=== PATIENT | female | born 1990 | race Caucasian/White ===

== ENCOUNTER 2022-12-14 12:53 | Inpatient (IN) | payer SELFPAY ==
[2022-12-14] VITALS (9 sets, daily range): BP systolic 103–127; BP diastolic 67–80; PULSE 74–99; RESP 16–18; TEMP 36.6–37.1; O2SAT 96–100; BMI 26.8; BMI 26.3
--- NOTE | 2022-12-14 13:19 | PC.NURSE ---
Dr. Ortiz at BS for pt eval
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
--- NOTE | 2022-12-14 13:50 | PC.NURSE ---
Dr. Ortiz on phone with Dr. Quintero for consult
--- NOTE | 2022-12-14 13:55 | PC.NURSE ---
Pt gone to RAD via wheelchair
--- NOTE | 2022-12-14 13:56 | MR_ITS ---
PROCEDURE INFORMATION: Exam: MR Left Lower Extremity Without Contrast, Femur Exam date and time: 12/14/2022 5:09 PM Age: 32 years old Clinical indication: Edema; Location not specified; Additional info: Concern for schuler - zac injury TECHNIQUE: Imaging protocol: Magnetic resonance imaging of the left femur without contrast. COMPARISON: CR XR FEMUR LT 2V 12/14/2022 1:50 PM FINDINGS: Bones/joints: Marrow edema in the posteromedial tibial plateau may indicate bone contusion without rodríguez macro fracture. Knee evaluation is limited by large ymowh-pz-secj/scan range technique related to imaging the entire thigh, however ACL appears discontinuous in its mid segment and raises concern for ACL tear, although there is no significant joint effusion present to specifically support acute ACL tear, correlate clinically for ACL instability. Soft tissues: Large fluid collection in the posterior thigh, proximal to distal, extending into the posterolateral distal thigh and lateral knee distribution, with a broad based deep margin lying directly along the posterior myofascial margin of the posterior compartment musculature. The findings are consistent with closed degloving injury/Schuler Zac lesion. Large hemolymphatic fluid collection in this region measures up to 15 cm transverse by 4.5 cm AP by 35 cm craniocaudal. The marginally visualized proximal fibular diaphysis demonstrates STIR hyperintense marrow edema and surrounding soft tissue edema on coronal STIR series 15, images 14-18, with slight periosteal thickening. Corresponding radiographs in this region show subacute appearing transverse nondisplaced fracture with mild periosteal new bone formation. Reproductive: 9 mm simple nabothian cyst in the cervix. IMPRESSION: 1. Large fluid collection in the posterior distal thigh extending into the lateral knee as detailed above, with distribution/configuration concerning for closed degloving injury/Schuler-zac lesion. No gross noncontrast MRI features to suggest superinfection. 2. Marrow edema in the posteromedial tibial plateau suggesting bone contusion without rodríguez macro fracture. 3. Question thinning or discontinuity in the mid ACL, correlate clinically for ACL instability/tear. Only minimal joint effusion is present, which goes against acute tear however. 4. Nondisplaced subacute fracture of the proximal tibial diaphysis with surrounding soft tissue swelling.
--- NOTE | 2022-12-14 13:56 | MR_ITS ---
PROCEDURE INFORMATION: Exam: MR Left Lower Extremity Without Contrast, Tibia Fibula Exam date and time: 12/14/2022 5:09 PM Age: 32 years old Clinical indication: Edema; Location not specified; Additional info: Concern for schuler - zac injury TECHNIQUE: Imaging protocol: Magnetic resonance imaging of the left lower extremity without contrast. Exam focused on the tibia and fibula. COMPARISON: CR XR TIBIA FIBULA LT 2V 12/14/2022 1:49 PM FINDINGS: Bones/joints: There is a subacute or late subacute nondisplaced transverse fracture in the proximal fibular diaphysis, demonstrating local periosteal thickening and surrounding soft tissue swelling on MRI, and mild periosteal new bone formation on comparison radiographs. There is additional marrow edema in the distal tibial diaphysis with no definite distal fracture or malalignment. Mild subcutaneous swelling throughout the lower leg. Bone contusion in the posteromedial tibial plateau without rodríguez macro fracture. Poorly delineated ACL mid segment concerning for potential high-grade ACL tear, with limited knee evaluation on the current technique, correlate clinically. Soft tissues: The large soft tissue fluid collection along the posterior myofascial margin of the left thigh extending into the lateral knee and upper leg concerning for Schuler - zac lesion is again noted, please see thigh MRI for details. Vasculature: Appropriate flow signal/flow voids are maintained in the left lower leg arterial and venous structures. IMPRESSION: 1. Subacute or late subacute transverse fracture of the proximal fibular diaphysis with periosteal reaction and developing periosteal new bone formation/callus on comparison radiograph. Proximal and distal tibiofibular alignment is maintained with no evidence of syndesmotic injury. 2. Bone contusion in the posteromedial tibial plateau without rodríguez macro fracture. 3. Discontinuous appearing mid ACL segment concerning for ACL tear. 4. Fluid collection concerning for Schuler - zac lesion in the posterior thigh extends into the lateral knee and upper leg, please see thigh MRI for details.
[2022-12-14 14:05] LABS: Alanine Aminotransferase 19 U/L (12-78); Albumin Level 4.5 g/dl (3.5-5.0); Albumin/Globulin Ratio 1.2 (1.1-1.8); Alkaline Phosphatase 92 U/L (38-126); Anion Gap 13.9 mEq/L (5-15); Aspartate Amino Transferase 25 U/L (14-36); Bilirubin,Total 0.4 mg/dl (0.2-1.3); Blood Urea Nitrogen 10 mg/dl (7-17); Calcium 9.5 mg/dl (8.4-10.2); Carbon Dioxide 29 mmol/L (22.0-30.0); Chloride 104 mmol/L (98-107); Creatine Kinase 62 U/L (30-135); Creatinine Clearance Estimated 164 mL/min (50-200); Estimated Glomerular Filt Rate 97 ml/min (>60); GFR (African American) 117 ML/MIN (>60); Globulin 3.8 g/dL (1.3-3.2); Glucose 106 mg/dl (74-100); Potassium 3.9 mmoL/L (3.5-5.1); Sodium 143 mmol/L (136-145); Total Protein,Serum 8.3 g/dl (6.3-8.2)
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
[2022-12-14 14:06] LABS: Lactic Acid 0.7 mmol/L (0.7-2.1)
[2022-12-14 14:11] LABS: C-Reactive Protein 32.9 mg/L (0-4)
[2022-12-14 14:14] LABS: Basophils # 0.1 K/mm3 (0-0.2); Basophils % 0.7 % (0.1-2.0); Eosinophils # 0.1 K/mm3 (0.0-0.4); Eosinophils % 0.9 % (0.1-12.0); Hematocrit 37.6 % (37.0-47.0); Hemoglobin 12.7 g/dL (12.2-16.2); Lymphocytes # 1.6 K/mm3 (0.7-4.5); Lymphocytes % 14.3 % (10-50); Mean Corpuscular HGB Conc 33.9 g/dL (31.8-35.4); Mean Corpuscular Hemoglobin 32.4 pg (27.0-31.2); Mean Corpuscular Volume 95.5 fl (81-99); Mean Platelet Volume 8.3 fl (7.4-10.4); Monocytes # 0.7 K/mm3 (0.1-1.0); Monocytes % 6.1 % (1.7-9.3); Neutrophils # 8.6 K/mm3 (1.8-7.8); Platelet Count 220 K/mm3 (142-424); Red Blood Count 3.93 M/mm3 (4.20-5.40); Red Cell Distribution Width 13.5 % (11.5-17.5)
--- NOTE | 2022-12-14 14:30 | PC.NURSE ---
Spoke with radiology, they advised 1800 is the soonest they can perform the MRI. Dr. Ortiz advised that was fine
[2022-12-14 14:34] LABS: HCG Qualitative, Serum Negative (Negative)
[2022-12-14 14:43] LABS: Erythrocyte Sedimentation Rate 27 mm/hr (0-20)
--- NOTE | 2022-12-14 15:17 | P.CONPHA_ITS ---
Pharmacy Consult Date: 12/14/22 Time: 15:17 Referring provider: DR. BANGURA Reason for Consult:: VANCOMYCIN DOSING Allergies Allergy/AdvReac Type Severity Reaction Status Date / Time loratadine [From Claritin-D] Allergy Verified 12/14/22 13:23 pseudoephedrine Allergy Verified 12/14/22 13:23 [From Claritin-D] New Prescriptions to Start Prescriptions: Height: 1.83 m Weight: 89.811 kg Laboratory Results:: Laboratory Results - last 24 hr 12/14/22 13:39: WBC 11.0 H, RBC 3.93 L, Hgb 12.7, Hct 37.6, MCV 95.5, MCH 32.4 H , MCHC 33.9, RDW 13.5, Plt Count 220, MPV 8.3, Neut % (Auto) 78.0, Lymph % (Aut o) 14.3, Blackford % (Auto) 6.1, Eos % (Auto) 0.9, Baso % (Auto) 0.7, Neut # (Auto) 8.6 H, Lymph # (Auto) 1.6, Blackford # (Auto) 0.7, Eos # (Auto) 0.1, Baso # (Auto) 0.1, ESR 27 H, Sodium 143, Potassium 3.9, Chloride 104, Carbon Dioxide 29, Anion Gap 13.9, BUN 10, Creatinine 0.70, Estimated Creat Clear 164, Estimated GFR 97, Est GFR ( Amer) 117, Glucose 106 H, Lactate 0.7, Calcium 9.5, Total Bilirubin 0.4, AST 25, ALT 19, Alkaline Phosphatase 92, Total Creatine Kinase 62, C-Reactive Protein 32.9 H, Total Protein 8.3 H, Albumin 4.5, Globulin 3.8 H, Albumin/Globulin Ratio 1.2, Serum HCG, Qual Negative Assessment and Plan Assessment and plan all Dx Assessment and Plan for all problems:: Pharmacokinetic dosing service Objective: Patient: Floor: Age: 32 yo Serum creatinine: 0.7 mg/dL Height: 72.0 Inches Weight (kg): 89.811 Assessment: IBW (kg): 73.10 Dosing wt(kg): 89.811 Estimated Creatinine clearance (ml/min): 130 Clearance limited to 130 ml/min to reduce risk of overdosing. CRCL method: Cockcroft and Gault using ibw(default). Drug selected: Vancomycin Loading dose (mg): 0 Vd (liters): 71.8 (factor used: 0.8 L/kg) Alfonso (hr-1): 0.112 Half life (hrs): 6.19 Recommended dose: 1500 mg Interval: 8 hrs Infusion time (hrs): 2.0 Predicted peak (mcg/mL): 31.6 Predicted trough (mcg/mL): 16.14 Total body weight is being used for vancomycin dosing. Recommendations: Give Vancomycin 1500 mg q 8 hrs with an expected Cpeak of 31.6 mcg/ml and an expected Ctrough of 16.14 mcg/ml. ----Vanco only - ignore for aminoglycosides----- CLvanco= 8.04 L/hr AUC 0-24 /CHARLES Data: CHARLES 0.5 mcg/mL: AUC/CHARLES: 1119.4 CHARLES 1.0 mcg/mL: AUC/CHARLES: 559.7 --------- CHARLES 1.5 mcg/mL: AUC/CHARLES: 373.1 CHARLES 2.0 mcg/mL: AUC/CHARLES: 279.9
--- NOTE | 2022-12-14 16:43 | PC.NURSE ---
pt to MRI via wheelchair
--- NOTE | 2022-12-14 17:52 | PC.NURSE ---
verbal orders given by to medicate pt while in MRI. orders placed and verbal read back to
--- NOTE | 2022-12-14 19:15 | PC.NURSE ---
Report received, pt is still in MRI
--- NOTE | 2022-12-14 19:46 | PC.NURSE ---
Pt back from MRI
--- NOTE | 2022-12-14 19:53 | PC.NURSE ---
paged at this time.
--- NOTE | 2022-12-14 19:56 | PC.NURSE ---
o/p with at this time.
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
--- NOTE | 2022-12-14 20:29 | PC.NURSE ---
Pt complained of pain of right AC IV, flushed without difficulty, good blood return noted, pt requested new IV site.
--- NOTE | 2022-12-14 20:33 | PC.NURSE ---
Attempted to call report, Dhara unable to take report now, will return call melissa
--- NOTE | 2022-12-14 20:43 | PC.NURSE ---
2034 RECEIVED PHONE REPORT FROM HELEN RN/ED NURSE. PATIENT IS A 32 YO FEMALE . DIAGNOSIS CELLULITIS LLE. JUNE TRANSPORT VIA W/C.
--- NOTE | 2022-12-14 20:47 | P.PNANES_ITS ---
[facility] Disclaimer: The information contained in this section may have been updated after the patient was seen, as this information can be updated by other users. Medical History (Updated 12/15/22 @ 08:35 by Aaron Quintero DO) ADHD Anxiety Depression PTSD (post-traumatic stress disorder) Family History (Updated 12/14/22 @ 21:41 by Erin Roth RN) Other Family history of diabetes mellitus (DM) Social History (Updated 12/14/22 @ 21:40 by Erin Roth RN) Smoking Status: Current every day smoker alcohol intake: never substance use type: marijuana current occupational status: other Travel in the last 8 weeks: None [facility] Anesthesia Checklist Patient Identification Patient Identification: Arm Band and Verbal (Name & ) Structural Data Admitted From: Inpatient Planned Operative Procedure/s: I & D LLE NPO Status Verified Time NPO: 00:00 Chart Verification Results Verified: HCG Additional verifications Anesthesia Reactions: No Airway Assessment Mallampati Score:: Class II C-Spine Mobility Assessed: Yes TMJ Mobility Assessed: Yes Dentition: Good Dentition Neurological Assessment Level of Consciousness: Awake Hx Seizures: No Numbness or tingling in extremities: No Anesthesia Plan Anesthesia Risk discussed: Yes Anesthesia Plan: Verified ASA Class: II (E) Anesthesia Type: General
--- NOTE | 2022-12-14 20:54 | PC.NURSE ---
Patient arrived to floor via wheelchair at 20:54.
--- NOTE | 2022-12-14 21:18 | PC.NURSE ---
PATIENT ARRIVED TO THE FLOOR VIA W/C AT 2053.
--- NOTE | 2022-12-14 22:47 | PC.NURSE ---
ASSISTED WITH SHOWER. NPO AFTER MN.
[2022-12-15] VITALS (18 sets, daily range): BP systolic 87–131; BP diastolic 46–89; PULSE 66–95; RESP 12–22; TEMP 36.4–37; O2SAT 97–100; BMI 26.3
--- NOTE | 2022-12-15 02:34 | PC.NURSE ---
resting quietly in bed. NAD. NPO SINCE MN.
--- NOTE | 2022-12-15 04:51 | PC.NURSE ---
NAHED Serrano NP NOTIFIED RE LOWER BPs. PATIENT STATES LOW BPS NORMAL FOR HER. ASYMPTOMATIC. TO CONTINUE IVFs AT 50ML/HR AND MONITOR BPs.
[2022-12-15 07:19] LABS: Basophils # 0.1 K/mm3 (0-0.2); Basophils % 0.6 % (0.1-2.0); Eosinophils # 0.3 K/mm3 (0.0-0.4); Eosinophils % 3.2 % (0.1-12.0); Hematocrit 34.1 % (37.0-47.0); Hemoglobin 11.6 g/dL (12.2-16.2); Lymphocytes # 1.6 K/mm3 (0.7-4.5); Lymphocytes % 20.8 % (10-50); Mean Corpuscular HGB Conc 34.1 g/dL (31.8-35.4); Mean Corpuscular Hemoglobin 32.9 pg (27.0-31.2); Mean Corpuscular Volume 96.7 fl (81-99); Mean Platelet Volume 8.3 fl (7.4-10.4); Monocytes # 0.5 K/mm3 (0.1-1.0); Monocytes % 5.9 % (1.7-9.3); Neutrophils # 5.5 K/mm3 (1.8-7.8); Neutrophils % 69.5 % (37.0-80.0); Platelet Count 220 K/mm3 (142-424); Red Blood Count 3.53 M/mm3 (4.20-5.40); Red Cell Distribution Width 13.4 % (11.5-17.5); White Blood Count 7.9 K/mm3 (4.8-10.8)
[2022-12-15 07:26] LABS: Chloride 108 mmol/L (98-107); Sodium 141 mmol/L (136-145)
[2022-12-15 07:27] LABS: Potassium 3.6 mmoL/L (3.5-5.1)
[2022-12-15 07:29] LABS: Alanine Aminotransferase 16 U/L (12-78); Alkaline Phosphatase 85 U/L (38-126); Anion Gap 9.6 mEq/L (5-15); Aspartate Amino Transferase 22 U/L (14-36); Blood Urea Nitrogen 10 mg/dl (7-17); Carbon Dioxide 27 mmol/L (22.0-30.0); Creatinine Clearance Estimated 161 mL/min (50-200); Estimated Glomerular Filt Rate 97 ml/min (>60); GFR (African American) 117 ML/MIN (>60)
[2022-12-15 07:30] LABS: Albumin Level 3.7 g/dl (3.5-5.0); Albumin/Globulin Ratio 1.2 (1.1-1.8); Bilirubin,Total < 0.1 mg/dl (0.2-1.3); Globulin 3.1 g/dL (1.3-3.2); Glucose 103 mg/dl (74-100); Magnesium 1.8 mg/dl (1.6-2.3); Total Protein,Serum 6.8 g/dl (6.3-8.2)
--- NOTE | 2022-12-15 08:25 | HMH.PHAINT1 ---
Pharmacy Intervention Comments: MEDICATION RECONCILIATION COMPLETED ON PATIENT USING EXTERNAL FILL HISTORY FROM PHARMACY. -MACIEJ TA, JOSSD
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
--- NOTE | 2022-12-15 10:24 | EXP.ANES.I ---
[facility] [place] Anesthesia Record Part I Anesthesia Record I Intake, IV Amount: 200 Hydration: Adequate Estimated blood loss (mL): 10 Urine output (mL): 0 Blood Pressure: 124/82 SaO2: 99 Pulse Rate: 82 Airway Patency: Patent Respiratory Rate: 20 Temperature: 97.5 F Patient is:: Drowsy and Oral/Nasal airway Stable to PACU at:: 10:20
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
--- NOTE | 2022-12-15 11:13 | P.PN_ITS ---
Subjective *Date: 12/15/22 *Time: 11:13 Interval history: Patient seen on the floor postoperatively overall she feels better her leg feels industrial sales engineer. I explained the interoperative findings with her review the course of action. Ortho Exam (Inpt) Vital signs and Labs for Last 24 Hours: Temp Pulse Resp BP Pulse Ox O2 Del Method 97.5 F L 82 20 124/82 100 Room Air 12/15/22 10:25 12/15/22 10:25 12/15/22 10:12/15/22 10:12/15/22 10:12/15/22 10:21 Laboratory Results - last 24 hr 12/14/22 13:39: WBC 11.0 H, RBC 3.93 L, Hgb 12.7, Hct 37.6, MCV 95.5, MCH 32.4 H , MCHC 33.9, RDW 13.5, Plt Count 220, MPV 8.3, Neut % (Auto) 78.0, Lymph % (Auto) 14.3, Burleson % (Auto) 6.1, Eos % (Auto) 0.9, Baso % (Auto) 0.7, Neut # (Auto) 8.6 H, Lymph # (Auto) 1.6, Burleson # (Auto) 0.7, Eos # (Auto) 0.1, Baso # (Auto) 0.1, ESR 27 H, Sodium 143, Potassium 3.9, Chloride 104, Carbon Dioxide 29, Anion Gap 13.9, BUN 10, Creatinine 0.70, Estimated Creat Clear 164, Estimated GFR 97, Est GFR ( Amer) 117, Glucose 106 H, Lactate 0.7, Calcium 9.5, Total Bilirubin 0.4, AST 25, ALT 19, Alkaline Phosphatase 92, Total Creatine Kinase 62, C-Reactive Protein 32.9 H, Total Protein 8.3 H, Albumin 4.5, Globulin 3.8 H, Albumin/Globulin Ratio 1.2, Serum HCG, Qual Negative 12/15/22 06:11: WBC 7.9 D, RBC 3.53 L, Hgb 11.6 L, Hct 34.1 L, MCV 96.7, MCH 32.9 H, MCHC 34.1, RDW 13.4, Plt Count 220, MPV 8.3, Neut % (Auto) 69.5, Lymph % (Auto) 20.8, Burleson % (Auto) 5.9, Eos % (Auto) 3.2, Baso % (Auto) 0.6, Neut # (Auto) 5.5, Lymph # (Auto) 1.6, Burleson # (Auto) 0.5, Eos # (Auto) 0.3, Baso # (Auto) 0.1, Sodium 141, Potassium 3.6, Chloride 108 H, Carbon Dioxide 27, Anion Gap 9.6, BUN 10, Creatinine 0.70, Estimated Creat Clear 161, Estimated GFR 97, Est GFR ( Amer) 117, Glucose 103 H, Calcium 8.0 L, Magnesium 1.8, Total Bilirubin < 0.1 L, AST 22, ALT 16, Alkaline Phosphatase 85, Total Protein 6.8, Albumin 3.7 D, Globulin 3.1, Albumin/Globulin Ratio 1.2 I & O for Labs for Last 24 Hours: Intake & Output 12/12/22 12/13/22 12/14/22 12/15/22 23:59 23:59 23:59 23:59 Intake Total 1296 / 1296 Output Total 0 / 0 Balance - 1296 / 1296 Weight 194 lb 8 oz 194 lb 8.01 oz Findings:: Left thigh dressing intact with GRAYSON drain intact. Assessment and Plan *Assessment and plan (1) Gomez Kiersten lesion: Problem Comment: Left posterior thigh Status: Acute Category: Medical Code(s): T14.8XXA - Other injury of unspecified body region, initial encounter (2) Cellulitis of left leg: Status: Acute Category: Medical Code(s): L03.116 - Cellulitis of left lower limb Plan Plan will be for her to continue with IV antibiotics. Will do a dressing change possibly discontinue the drain on Saturday.
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
[2022-12-15 16:15] LABS: Vancomycin,Trough 16.6 ug/mL (5.0-10.0)
[2022-12-15 21:29] LABS: Vancomycin,Peak 26.1 ug/ml (11-39)
[2022-12-16] VITALS: BP 109/63; PULSE 88; RESP 18; TEMP 36.8; O2SAT 100
[2022-12-16 04:00] VITALS: BP 125/69; PULSE 91; RESP 18; TEMP 36.6; O2SAT 98; BMI 26.3
--- NOTE | 2022-12-16 05:41 | PC.NURSE ---
70 ml of serousangineous drainage from mahsa drain. pt ambulated in ye, poncho well. a.febrile. pt receiving abx and prn pain meds.
[2022-12-16 07:56] VITALS: BP 107/60; PULSE 68; RESP 18; TEMP 36.7; O2SAT 100
--- NOTE | 2022-12-16 08:32 | EXP.PHA.CONS ---
Pharmacy Consult Date: 12/16/22 Time: 08:32 Referring provider: DR. RAMIREZ Reason for Consult:: VANCOMYCIN TROUGH LEVEL Allergies Allergy/AdvReac Type Severity Reaction Status Date / Time loratadine [From Claritin-D] Allergy Verified 12/14/22 13:23 pseudoephedrine Allergy Verified 12/14/22 13:23 [From Claritin-D] Home Medications Medication Instructions Recorded Confirmed Type bupropion HCl 300 mg 24 hr tablet, 300 mg PO DAILY Mood 12/14/22 12/14/22 History extended release dextroamphetamine-amphetamine ER 30 mg PO DAILY ADHD 12/14/22 12/14/22 History 30 mg 24hr capsule,extend release (Adderall XR) hydroxyzine pamoate 50 mg capsule 50 mg PO TIDP Anxiety 12/14/22 12/15/22 History lamotrigine 100 mg tablet 100 mg PO DAILY Mood 12/14/22 12/14/22 History New Prescriptions to Start Prescriptions: Height: 1.83 m Weight: 88.226 kg Laboratory Results:: Laboratory Results - last 24 hr 12/15/22 15:30: Vancomycin Trough 16.6 H 12/15/22 20:45: Vancomycin Peak 26.1 Medical History: Medical History (Updated 12/15/22 @ 08:35 by Aaron Quintero DO) ADHD Anxiety Depression PTSD (post-traumatic stress disorder) Assessment and Plan Assessment and plan all Dx Assessment and Plan for all problems:: BASED ON PATIENT FACTORS AND VANCOMYCIN TROUGH LEVEL OF 16.6, RECOMMEND CONTINUING CURRENT DOSE OF VANCOMYCIN AT 1,500MG IV EVERY 8 HOURS. PHARMACY WILL CONTINUE TO MONITOR. -MACIEJ TA PHARMD
[2022-12-16 11:47] VITALS: BP 91/50; PULSE 78; RESP 18; TEMP 36.8; O2SAT 100
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
[2022-12-16 16:00] VITALS: BP 99/57; PULSE 70; RESP 18; TEMP 36.8; O2SAT 98
--- NOTE | 2022-12-16 16:10 | PC.NURSE ---
A&OX4. TOLERATING RA WELL. PT HAS C/O PAIN MULTIPLE TIMES THIS SHIFT, TX PER APR. EFFECTIVENESS NOTED. ALSO C/O NAUSEA X1, TREATED PER MAR, EFFECTIVENESS NOTED. PT HAS SLEPT INTERMITTENTLY T/O SHIFT AND HAS ALSO BEEN UP WALKING IN ROOM. GRAYSON DRAIN INTACT WITH SEROSANG DRAINAGE NOTED. WILL CHART TOTAL OUTPUT AT END OF SHIFT. NO OTHER NEEDS OR C/O NOTED AT THIS TIME, VSS.
[2022-12-16 19:49] VITALS: BP 101/62; PULSE 64; RESP 18; TEMP 36.6; O2SAT 98
[2022-12-17] VITALS: BP 126/75; PULSE 84; RESP 18; TEMP 36.7; O2SAT 94
[2022-12-17 03:56] VITALS: BP 100/63; PULSE 57; RESP 18; TEMP 36.8; O2SAT 98; BMI 28.2
--- NOTE | 2022-12-17 04:58 | PC.NURSE ---
a.febrile, 40 ml of light pink serous drainage from mahsa drain pt did have one episode of emesis.
[2022-12-17 06:52] LABS: C-Reactive Protein 10.1 mg/L (0-4)
[2022-12-17 06:58] VITALS: BP 102/65; PULSE 71
--- NOTE | 2022-12-17 07:32 | P.PNANES_ITS ---
[facility] Anesthesia Record Part II Anesthesia Record Part II Discharge Time: 11:04 Destination: Second Floor PACU nurse assessment reviewed?: Yes Patient Condition:: Good Anesthesia Complications:: None Swallowing reflex intact?: Yes Airway Patency: Patent Cyanosis?: No Blood Pressure: 111/65 SaO2: 99 Respiratory Rate: 12 Pulse Rate: 77 Temperature: 97.5 F Mental Status: Alert & Oriented Pain level:: 0 Nausea and/or vomitting:: None Intake, IV Amount: 0 Hydration: Adequate
[2022-12-17 07:34] VITALS: BP 111/65; PULSE 77; RESP 12; TEMP 36.4; O2SAT 99
[2022-12-17 07:37] VITALS: BP 134/70; PULSE 70; RESP 18; TEMP 36.6; O2SAT 97
[2022-12-17 09:36] LABS: Erythrocyte Sedimentation Rate 26 mm/hr (0-20)
--- NOTE | 2022-12-17 10:32 | EXP.ORTH.PN ---
Subjective *Date: 12/17/22 *Time: 10:32 Interval history: Patient doing reasonably well. Decreased pain. Overall doing well. Ortho Exam (Inpt) Vital signs and Labs for Last 24 Hours: Temp Pulse Resp BP Pulse Ox O2 Del Method 97.9 F 70 18 134/70 97 Room Air 12/17/22 07:37 12/17/22 07:37 12/17/22 07:37 12/17/22 07:37 12/17/22 07:37 12/17/22 09:00 Laboratory Results - last 24 hr 12/17/22 05:25: ESR 26 H, C-Reactive Protein 10.1 H D I & O for Labs for Last 24 Hours: Intake & Output 12/14/22 12/15/22 12/16/22 12/17/22 23:59 23:59 23:59 23:59 Intake Total 2451 / 2451 1822 / 1822 0 / 0 Output Total 900 / 940 345 / 385 365 / 365 Balance - 1551 / 1511 1477 / 1437 -365 / -365 Weight 194 lb 8 oz 194 lb 8.01 oz 194 lb 8.08 oz 208 lb 5 oz Comment:: Left thigh: Stitch removed and GRAYSON drain removed. Wound in the posterior thigh benign. Dressing change at the posterior knee wound. There is no active drainage or infection. There is improvement of the cellulitis. Assessment and Plan *Assessment and plan (1) Gomez Kiersten lesion: Problem Comment: Left posterior thigh Status: Acute Category: Medical Code(s): T14.8XXA - Other injury of unspecified body region, initial encounter (2) Cellulitis of left leg: Status: Acute Category: Medical Code(s): L03.116 - Cellulitis of left lower limb Plan Drain removed today. Dressing changed. IV discontinued patient will be discharged with oral antibiotics. She will have a follow-up appointment in the clinic. Made a wound care appointment for evaluation and treatment of the wound of the posterior knee.
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
--- NOTE | 2022-12-18 13:13 | CARE MANAGER ---
Called and spoke with patient regarding recent discharge. She stated that she is doing well, and was aware of scheduled f/u appt. Her antibiotic was making her nauseated, so I called down and got an ok from pharmacy for her to eat a little something when she takes it. No other concerns voiced at time of call.
== END 2022-12-17 13:55 | disposition home or self-care (01) | DRG 603 ==
LOC: ER 15:24 → 2ND 20:16
PROVIDERS: Nurse Practitioner Family; Orthopaedic Surgery; Student in an Organized Health Care Education/Training Program; Admitting Provider Internal Medicine; Emergency Provider Emergency Medicine; Visit Provider Internal Medicine
PROC: 0J9M0ZZ Drainage of Left Upper Leg Subcutaneous Tissue and Fascia, Open Approach (ICD-10-PCS; CPT 27025; principal; 2022-12-15 09:00)
DX: L03.116 Cellulitis of left lower limb (principal); S82.832G Other fracture of upper and lower end of left fibula, subsequent encounter for closed fracture with delayed healing; F41.9 Anxiety disorder, unspecified; F90.9 Attention-deficit hyperactivity disorder, unspecified type; F17.200 Nicotine dependence, unspecified, uncomplicated; S82.409A Unspecified fracture of shaft of unspecified fibula, initial encounter for closed fracture; F43.11 Post-traumatic stress disorder, acute; S80.12XA Contusion of left lower leg, initial encounter; F32.A Depression, unspecified
CPT/HCPCS: 27025; 36415; 73552; 73590; 73718; 80053; 80202; 82550; 83605; 83735; 84703; 85025; 85651; 86140; 87040; 99285; J2405

== ENCOUNTER 2022-12-28 06:09 | Day surgery (SDC) | payer SELFPAY ==
[2022-12-27 09:19] VITALS: BMI 26.4
[2022-12-28] VITALS (11 sets, daily range): BP systolic 104–127; BP diastolic 62–70; PULSE 63–88; RESP 16–18; TEMP 36.2–36.8; O2SAT 98–100
[2022-12-28 06:39] LABS: Urine Pregnancy, HCG Qual. Negative (Negative)
--- NOTE | 2022-12-28 07:45 | P.PNANES_ITS ---
[facility] Disclaimer: The information contained in this section may have been updated after the patient was seen, as this information can be updated by other users. Medical History ADHD Anxiety Depression PTSD (post-traumatic stress disorder) Surgical History History of appendectomy History of thyroid surgery Family History Other Family history of diabetes mellitus (DM) Social History (Updated 12/28/22 @ 06:47 by Armida Mcgee RN) Smoking Status: Current every day smoker alcohol intake: current substance use type: marijuana current occupational status: employed Travel in the last 8 weeks: None [facility] Anesthesia Checklist Patient Identification Patient Identification: Arm Band Structural Data Admitted From: Home Planned Operative Procedure/s: I&D Left Lower Extremity Consent for Planned Operative Procedure(s) Verified: Yes Verified Documents: Surgical Consent and History and Physical NPO Status Verified Time NPO: 00:00 Additional verifications Anesthesia Reactions: Yes (vomiting) Hx Blood Transfusions: No Blood Transfusion Reaction: No Airway Assessment Mallampati Score:: Class II C-Spine Mobility Assessed: Yes TMJ Mobility Assessed: Yes Dentition: Good Dentition Neurological Assessment Level of Consciousness: Awake and Alert Anesthesia Plan Anesthesia Risk discussed: Yes Anesthesia Plan: Verified ASA Class: II Anesthesia Type: General
--- NOTE | 2022-12-28 08:30 | EXP.ANES.I ---
[facility] Anesthesia Record Part I Anesthesia Record I Intake, IV Amount: 900 Hydration: Adequate Estimated blood loss (mL): 5 Urine output (mL): 0 Blood Products used (#): none Blood Pressure: 126/70 SaO2: 99 Pulse Rate: 88 Airway Patency: Patent Respiratory Rate: 16 Temperature: 97.3 F Patient is:: Drowsy Stable to PACU at:: 08:25
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
--- NOTE | 2022-12-28 09:09 | SUR.PHASEI ---
[id number]- detailed report called to amado newman in post op [id number]- pt left in stable condition with amado newman in post op in stable condition.
--- NOTE | 2022-12-28 09:37 | EXP.ANES.II ---
[facility] Anesthesia Record Part II Anesthesia Record Part II Discharge Time: 09:00 Destination: Surgical Day Care (OP Surgery) PACU nurse assessment reviewed?: Yes Patient Condition:: Good Anesthesia Complications:: None Swallowing reflex intact?: Yes Airway Patency: Patent Cyanosis?: No Blood Pressure: 119/65 SaO2: 98 Respiratory Rate: 16 Pulse Rate: 72 Temperature: 98.3 F Mental Status: Alert & Oriented Pain level:: 1 Nausea and/or vomitting:: None Intake, IV Amount: 0 Hydration: Adequate
== END 2022-12-28 09:40 | disposition home or self-care (01) ==
PROVIDERS: Visit Provider Orthopaedic Surgery
PROC: (CPT 10140; principal; 2022-12-28 07:30)
DX: T79.2XXA Traumatic secondary and recurrent hemorrhage and seroma, initial encounter (principal); F17.210 Nicotine dependence, cigarettes, uncomplicated
CPT/HCPCS: 10140; 81025; 96374; J2405

== ENCOUNTER → 2023-01-15 09:46 | Outpatient (CLI) | payer SELFPAY ==
--- NOTE | 2023-01-15 09:51 | CA_ITS ---
FINAL REPORT TECHNIQUE: Color Doppler, duplex Doppler and compression sonography of the left lower extremity deep venous systems was performed. CLINICAL HISTORY: R/O Blood Clot, Left posterior lateral knee wound FINDINGS: There is no evidence of deep venous thrombosis from the level of the groin to the calf. The veins are patent and compressible. IMPRESSION: No evidence of deep venous thrombosis left lower extremity. Reviewed, Interpreted and Dictated by Waldemar Pitts III, MD Transcribed by Beverly Avery Authenticated and [facility]
== END ==
LOC: RT 09:47
PROVIDERS: Visit Provider Orthopaedic Surgery
DX: L03.116 Cellulitis of left lower limb (principal)
CPT/HCPCS: 93971

== ENCOUNTER 2023-02-03 14:05 | Emergency (ER) | payer SELFPAY ==
[2023-02-03 14:30] VITALS: BP 118/76; PULSE 76; RESP 18; TEMP 36.7; O2SAT 99; BMI 26.4
--- NOTE | 2023-02-03 14:56 | EXP.UTC ---
Discharge Plan Disposition Patient Disposition: Home, Self-Care Condition: Good Referrals Follow up/Referrals: Provider,Referral, MD [Primary Care Provider] - See instructions Activity Restrictions/Add. Instructions Additional Instructions/Restrictions: *Monitor Temp, Over the counter Motrin or Tylenol as directed/as needed Tylenol every 4 hours and Motrin every 6 hours (as long as your family doctor has told you that you can take it) for fever or pain. and straight to ER if unable to lower temp less than 101.0 after medication given *Warm salt water gargles may help to soothe the throat *Throat Lozenges? *Warm fluids like tea with honey may help to soothe the throat? *Sleep elevated *Humidifier/Vaporizer *Flonase 2 sprays in each nostril daily but be aware that it may take 2-3 days before you notice improvement *Bromfed may cause drowsiness. Know how it effects you (your child) before driving, caring for small child, or sending your child to school. Not other antihistamines/allergy medications while taking bromfed Your throat swab was sent for culture. Those results are typically sent to your primary care. Be sure to follow up in 2-3 days with your family doctor/primary care physician if no improvement so they can review those result and treat if necessary. If you don?t have a primary care doctor, I recommend you get one but in the mean time, you will have to return to a walk in clinic Follow up IMMEDIATELY for new or worsening symptoms or no Noticeable improvement over the next 48-72 hours. 911 for difficulty breathing or swallowing You were tested for today for COVID19 your test result should be back in the next 24 hours You may check your results on the [facility] if your COVID or Flu is positive you must Quarantine for 5 days Clinical Impressions Clinical Impression: Viral syndrome Stand Alone Forms Stand Alone Forms: Work/School Release Instructions Patient Instructions: DI for Viral Syndrome, DI for COVID-19 (Suspected or Confirmed ) Discharge ED Provider: Raegan Eli [facility] [place] General Stated complaint: dizzy,nausea,sore throat Mode of Arrival: Ambulatory Source of Information: Patient Limitations: No Limitations Time Seen by Provider: 02/03/23 14:56 Description of Symptoms (Recalled from Triage Doc. by RN): PATIENT C/O COUGH AND CONGESTION X 3 DAYS. RECENTLY EXPOSED TO COVID HEENT Symptoms (Recalled from RN notes): Yes Resp Symptoms (Recalled from RN notes): Yes Skin Symptoms (Recalled from RN notes): No MS Symptoms (Recalled from RN notes): No Functional Status (Recalled from RN notes): WNL History of Present Illness Provider Complaint: Patient states that she has been having nasal congestion, sneezing, stuffy nose and cough for the last 3 days States someone in her household tested positive for COVID last night Related Data Allergies Allergy/AdvReac Type Severity Reaction Status Date / Time loratadine [From Claritin-D] Allergy Verified 01/15/23 09:15 pseudoephedrine Allergy Verified 01/15/23 09:15 [From Claritin-D] Worker's Comp Is this a Worker's Comp case?: No [facility] Disclaimer: The information contained in this section may have been updated after the patient was seen, as this information can be updated by other users. Medical History ADHD Anxiety Depression PTSD (post-traumatic stress disorder) Surgical History History of appendectomy History of thyroid surgery Family History Other Family history of diabetes mellitus (DM) Social History Smoking Status: Current every day smoker alcohol intake: current substance use type: marijuana current occupational status: employed Travel in the last 8 weeks:
[2023-02-03 15:03] VITALS: BP 118/76; PULSE 76; RESP 18; TEMP 36.7; O2SAT 99
== END 2023-02-03 15:05 | disposition home or self-care (01) ==
PROVIDERS: Emergency Provider Nurse Practitioner
DX: R50.9 Fever, unspecified (principal); R07.0 Pain in throat; R11.0 Nausea; R42 Dizziness and giddiness; R09.81 Nasal congestion; B34.9 Viral infection, unspecified; F17.210 Nicotine dependence, cigarettes, uncomplicated; Z20.822 Contact with and (suspected) exposure to COVID-19
CPT/HCPCS: 87635; 99203; 99212; G0463

== ENCOUNTER 2023-02-25 13:55 | Emergency (ER) | payer SELFPAY ==
[2023-02-25 13:56] VITALS: BP 127/82; PULSE 89; RESP 16; TEMP 36.7; O2SAT 98; BMI 26.0
--- NOTE | 2023-02-25 14:58 | PC.NURSE ---
DR KAMARA AT BEDSIDE
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
[2023-02-25 15:25] VITALS: BP 122/74; PULSE 84; RESP 16; TEMP 36.6; O2SAT 99
== END 2023-02-25 15:25 | disposition home or self-care (01) ==
PROVIDERS: Emergency Provider Emergency Medicine
DX: M79.605 Pain in left leg (principal); R22.42 Localized swelling, mass and lump, left lower limb; S81.802A Unspecified open wound, left lower leg, initial encounter; V29.99XA Rider (driver) (passenger) of other motorcycle injured in unspecified traffic accident, initial encounter; F17.200 Nicotine dependence, unspecified, uncomplicated
CPT/HCPCS: 99283

== ENCOUNTER 2023-02-28 12:49 | Emergency (ER) | payer SELFPAY ==
[2023-02-28 13:10] VITALS: BP 119/75; PULSE 81; RESP 18; TEMP 36.9; O2SAT 100; BMI 26.3
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
[2023-02-28 14:17] VITALS: BP 119/75; PULSE 81; RESP 18; TEMP 36.9; O2SAT 100
== END 2023-02-28 14:17 | disposition home or self-care (01) ==
PROVIDERS: Emergency Provider Nurse Practitioner Family
DX: L03.116 Cellulitis of left lower limb (principal); S71.102S Unspecified open wound, left thigh, sequela; F90.9 Attention-deficit hyperactivity disorder, unspecified type; F41.9 Anxiety disorder, unspecified; F32.A Depression, unspecified; F43.10 Post-traumatic stress disorder, unspecified; F17.200 Nicotine dependence, unspecified, uncomplicated; V29.99XS Rider (driver) (passenger) of other motorcycle injured in unspecified traffic accident, sequela
CPT/HCPCS: 87070; 87205; 99212; 99214; G0463

== ENCOUNTER 2023-03-04 12:43 | Emergency (ER) | payer SELFPAY ==
[2023-03-04 12:46] VITALS: BP 117/76; PULSE 85; RESP 15; TEMP 36.6; O2SAT 96; BMI 26.3
--- NOTE | 2023-03-04 12:53 | PC.NURSE ---
DR KAMARA AT BEDSIDE
[2023-03-04 12:59] VITALS: BP 119/64; PULSE 83; O2SAT 99
--- NOTE | 2023-03-04 13:00 | PC.NURSE ---
DR MCKEON PAGED AT THIS TIME
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
--- NOTE | 2023-03-04 13:16 | PC.NURSE ---
DR KAMARA SPEAKING WITH DR MCKEON
--- NOTE | 2023-03-04 13:19 | CT_ITS ---
FINAL REPORT TECHNIQUE: Thin section axial CT images with coronal and sagittal reformats were performed after the administration of IV contrast. This study was performed with techniques to keep radiation doses as low as reasonably achievable (ALARA). Individualized dose reduction techniques using automated exposure control or adjustment of mA and/or kV according to the patient''s size were employed. CLINICAL HISTORY: hamstring through calf to assess for fluid collect COMPARISON: None FINDINGS: There is a subacute to chronic proximal fibular fracture. There is fluid collection in the upper calf extending to the posterior thigh which likely represent seroma, chronic hematoma, or abscess. Musculature is intact. IMPRESSION: Subacute to chronic proximal fibular fracture. Fluid collection as above. Reviewed, Interpreted and Dictated by Waldemar Pitts III, MD Transcribed by Harriet Zepeda Authenticated and [facility]
[2023-03-04] MEDS: KETOROLAC 30MG/ML VIAL 15 MG IV (13:25)
[2023-03-04] MEDS: OXYCODONE 5MG IMMEDIATE RELEASE TABLET 5 MG PO ×2 (13:25→15:51)
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
[2023-03-04 13:40] LABS: Basophils # 0.1 K/mm3 (0-0.2); Basophils % 0.6 % (0.1-2.0); Eosinophils # 0.1 K/mm3 (0.0-0.4); Eosinophils % 0.7 % (0.1-12.0); Hematocrit 37.3 % (37.0-47.0); Hemoglobin 12.5 g/dL (12.2-16.2); Lymphocytes # 1.4 K/mm3 (0.7-4.5); Lymphocytes % 14.7 % (10-50); Mean Corpuscular HGB Conc 33.6 g/dL (31.8-35.4); Mean Corpuscular Hemoglobin 29.6 pg (27.0-31.2); Mean Corpuscular Volume 88.1 fl (81-99); Mean Platelet Volume 8.9 fl (7.4-10.4); Monocytes # 0.7 K/mm3 (0.1-1.0); Monocytes % 7.1 % (1.7-9.3); Neutrophils # 7.3 K/mm3 (1.8-7.8); Neutrophils % 76.9 % (37.0-80.0); Platelet Count 238 K/mm3 (142-424); Red Blood Count 4.23 M/mm3 (4.20-5.40); Red Cell Distribution Width 13.9 % (11.5-17.5); White Blood Count 9.5 K/mm3 (4.8-10.8)
[2023-03-04 13:49] LABS: Alanine Aminotransferase 18 U/L (12-78); Albumin Level 4.2 g/dl (3.5-5.0); Albumin/Globulin Ratio 1.2 (1.1-1.8); Alkaline Phosphatase 88 U/L (38-126); Anion Gap 5.9 mEq/L (5-15); Aspartate Amino Transferase 25 U/L (14-36); Bilirubin,Total 0.3 mg/dl (0.2-1.3); Blood Urea Nitrogen 12 mg/dl (7-17); Calcium 8.4 mg/dl (8.4-10.2); Carbon Dioxide 28 mmol/L (22.0-30.0); Chloride 105 mmol/L (98-107); Creatine Kinase 81 U/L (30-135); Creatinine Clearance Estimated 112 mL/min (50-200); Estimated Glomerular Filt Rate 64 ml/min (>60); GFR (African American) 78 ML/MIN (>60); Globulin 3.6 g/dL (1.3-3.2); Glucose 101 mg/dl (74-100); Potassium 3.9 mmoL/L (3.5-5.1); Sodium 135 mmol/L (136-145); Total Protein,Serum 7.8 g/dl (6.3-8.2)
[2023-03-04 13:54] LABS: C-Reactive Protein 24.7 mg/L (0-4)
[2023-03-04] MEDS: DALBAVANCIN HCL 1,500 MG in DEXTROSE 5 % IN WATER 250 ML 500 MG IV (13:54)
[2023-03-04 14:00] LABS: Lactic Acid 0.7 mmol/L (0.7-2.1)
[2023-03-04 14:17] LABS: Erythrocyte Sedimentation Rate 38 mm/hr (0-20)
[2023-03-04 14:34] LABS: HCG Qualitative, Serum Negative (Negative)
[2023-03-04] MEDS: 0.9 % SODIUM CHLORIDE 50 ML VIAL IV (14:58)
[2023-03-04] MEDS: IOPAMIDOL-370 (76%);100ML BOTTLE 95 ML IV (14:58)
--- NOTE | 2023-03-04 15:09 | PC.NURSE ---
FOLLOW-UP APPOINTMENT MADE WITH DR MCKEON 03/05/2023 AT 1:30
--- NOTE | 2023-03-04 15:35 | PC.NURSE ---
Addendum entered by Gina Starks, EMT 03/04/23 15:39: wrong pt Original Note: Dr. Phillips speaking with Bolivar Lovett at [facility]
[2023-03-04 15:46] VITALS: BP 111/77; PULSE 68; O2SAT 100
--- NOTE | 2023-03-04 15:52 | PC.NURSE ---
Pt complaining of pain in leg. MD notified.
[2023-03-04 16:45] LABS: Hemoglobin A1C 5.2 % (4.0-6.0)
--- NOTE | 2023-03-04 17:01 | PC.NURSE ---
DR JOSE AT BEDSIDE TO UPDATE PT
[2023-03-04 17:15] VITALS: BP 112/75; PULSE 70; RESP 18; TEMP 36.7; O2SAT 99
== END 2023-03-04 17:15 | disposition home or self-care (01) ==
PROVIDERS: Emergency Provider Emergency Medicine
DX: L97.829 Non-pressure chronic ulcer of other part of left lower leg with unspecified severity (principal); M79.662 Pain in left lower leg; F17.200 Nicotine dependence, unspecified, uncomplicated
CPT/HCPCS: 73701; 80053; 82550; 83036; 83605; 84703; 85025; 85651; 86140; 87040; 96374; 96375; 99285; J0875; Q9967

== ENCOUNTER 2023-03-31 13:12 | Emergency (ER) | payer OTHER, SELFPAY ==
[2023-03-31 13:21] VITALS: BP 129/81; PULSE 86; RESP 20; TEMP 36.9; O2SAT 96; BMI 25.7
--- NOTE | 2023-03-31 13:26 | CT_ITS ---
PROCEDURE INFORMATION: Exam: CT Head Without Contrast Exam date and time: 03/31/2023 2:54 PM Age: 32 years old Clinical indication: Pain; Headache; Additional info: Posterior headache, new, no h/o headache TECHNIQUE: Imaging protocol: Computed tomography of the head without contrast. Radiation optimization: All CT scans at this facility use at least one of these dose optimization techniques: automated exposure control; mA and/or kV adjustment per patient size (includes targeted exams where dose is matched to clinical indication); or iterative reconstruction. COMPARISON: No relevant prior studies available. FINDINGS: Brain: No evidence of acute parenchymal hemorrhage, extra-axial collection or local regional mass effect. Cerebral ventricles: The ventricles, sulci and cisterns are normal in size and configuration. No hydrocephalus or midline structure shift Pituitary gland and sella: Sellar/parasellar structures, orbits and craniocervical junction are unremarkable Paranasal sinuses: Visualized sinuses are unremarkable. No fluid levels. Mastoid air cells: Visualized mastoid air cells are well aerated. Bones/joints: No calvarial fracture Soft tissues: Unremarkable. IMPRESSION: No acute intracranial abnormality. No calvarial fracture.
--- NOTE | 2023-03-31 13:33 | ED_ITS ---
Discharge Plan Disposition Patient Disposition: Home, Self-Care Condition: Good Prescriptions Prescriptions: No Action gabapentin 100 mg capsule 100 mg PO HS Qty: 30 0RF Rx Instructions: 1 to 3 capsules every night for nerve pain. Do not drive while taking this medication sulfamethoxazole-trimethoprim [Bactrim DS] 800-160 mg Tablet 1 tab PO BID Qty: 20 0RF cephalexin 500 mg capsule 500 mg PO QID Qty: 40 0RF mupirocin 2 % ointment 1 applic topical TID 7 Days Qty: 15 0RF Referrals Follow up/Referrals: Provider,Referral, [Primary Care Provider] - See instructions Activity Restrictions/Add. Instructions Additional Instructions/Restrictions: You were evaluated in the emergency department today. Please take Tylenol and ibuprofen at home as needed for pain. Follow-up with orthopedics for your leg wound. Follow-up with your primary care provider for reassessment of your headaches. Return to the emergency department for new or worsening symptoms. Clinical Impressions Clinical Impression: Headache, Leg ulcer, left Instructions Patient Instructions: DI for Migraine, DI for Headache, DI for Neck Pain Discharge ED Provider: Martha Luna General Adult HPI General Chief complaint: Back Pain/Injury Stated complaint: back pain abd pain Time Seen by Provider: 03/31/23 13:17 Mode of Arrival: Ambulatory Source of Information: Patient Limitations: No Limitations Description of Symptoms (Recalled from ER Triage Doc. by RN): body aches,fever, back pain. Wound to left behind knee History of Present Illness HPI narrative: This patient is a 32-year-old female with a history of chronic wound to the p osterior aspect of her left leg who is followed by Dr. Quintero for this presenting to the emergency department with concern for headache and bodyaches. Patient states that she is also had subjective fever. No true fever, she just felt hot. She been feeling really bad for couple days now. No vision changes, numbness, tingling, chest pain, shortness of breath, abdominal pain, change in bowel movements, or other concerns. Her wound appearance has not changed significantly. She denies any new drainage. She does, however, admits to nausea on review of systems. Her biggest concern is the headache in the posterior aspect of her head. She states she does not typically get headaches and she can feel that something is not right. No other concerns noted at this time. Related Data Previous Rx's Medication Instructions Recorded gabapentin 100 mg capsule 100 mg PO HS #30 caps 02/25/23 cephalexin 500 mg capsule 500 mg PO QID #40 caps 02/28/23 mupirocin 2 % topical ointment 1 applic topical TID 7 days #15 02/28/23 grams sulfamethoxazole 800 1 tab PO BID #20 tabs 02/28/23 mg-trimethoprim 160 mg tablet (Bactrim DS) Allergies Allergy/AdvReac Type Severity Reaction Status Date / Time loratadine [From Claritin-D] Allergy Verified 03/05/23 13:56 pseudoephedrine Allergy Verified 03/05/23 13:56 [From Claritin-D] [facility] Disclaimer: The information contained in this section may have been updated after the patient was seen, as this information can be updated by other users. Medical History ADHD Anxiety Depression PTSD (post-traumatic stress disorder) Surgical History History of appendectomy History of thyroid surgery Family History Other Family history of diabetes mellitus (DM) Social History Smoking Status: Never smoker alcohol intake: current substance use type: marijuana current occupational status: employed Travel in the last 8 weeks: None ROS Obtained: Yes All systems reviewed & no additional complaints except as documented Physical Exam General General appearance: alert and anxious Comment: Tearful and uncomfortable appearing Head Head exam: atraumatic and normocephalic Eye Eye exam: Present normal appearance, PERRL and EOMI ENT ENT exam: Present normal exam, normal oropharynx, mucous membranes moist and normal external ear exam Neck Neck exam: Present normal inspection, full ROM and trachea midline; Absent tenderness Chest Chest inspection: Present normal inspection and symmetric chest wall rise; Absent tenderness Respiratory Respiratory exam: Present normal lung sounds bilaterally; Absent respiratory distress, wheezes, stridor or accessory muscle use Cardiovascular Cardiovascular exam: Present regular rate and normal rhythm Abdominal Exam Abdominal exam: Present soft; Absent distention, tenderness or guarding Extremities Exam Extremities exam: Present full ROM, normal capillary refill and other (Ulcerative to the posterior aspect of the left leg with overlying pink gr anulation tissue. No significant surrounding erythema, warmth, or induration. No purulent drainage. No red streaking away from the wound.); Absent tenderness or edema Back Exam Back exam: Present normal inspection and full ROM; Absent tenderness Neurological Exam Neurological exam: Present alert, oriented X3, CN II-XII intact and normal gait; Absent motor sensory deficit Psychiatric Psychiatric exam: Present anxious Skin Skin exam: Present warm and dry Medical Decision Making Medical Records Medical records reviewed: Yes I reviewed the patient's medical records. Wilner Inquiry Pt receiving controlled substance: No Vital Signs: 03/31/23 13:21 Temperature 98.5 F Temperature Source Oral Pulse Rate [Right Radial] 86 Respiratory Rate 20 Blood Pressure [Right Arm] 129/81 Blood Pressure Mean [Right Arm] 97 02 Sat by Pulse Oximetry 96 Oxygen Delivery Method Room Air Lab Data Lab results reviewed: Yes I reviewed the patient's lab results. Lab Results 03/31/23 13:30: SARS-CoV-2 (PCR) Not detected, Influenza A Untype (PCR) Not detected, Influenza Type B (PCR) Not detected 03/31/23 13:39: WBC 5.6, RBC 4.15 L, Hgb 12.3, Hct 35.2 L, MCV 85.0, MCH 29.7, MCHC 35.0, RDW 14.7, Plt Count 167, MPV 7.9, Neut % (Auto) 71.2, Lymph % (Auto) 18.1, [place] % (Auto) 9.0, Eos % (Auto) 0.8, Baso % (Auto) 1.0, Neut # (Auto) 4.0, Lymph # (Auto) 1.0, [place] # (Auto) 0.5, Eos # (Auto) 0.1, Baso # (Auto) 0.1, ESR 36 H, Sodium 136, Potassium 3.7, Chloride 105, Carbon Dioxide 27, Anion Gap 7.7, BUN 7, Creatinine 0.80, Estimated Creat Clear 137, Estimated GFR 83, Est GFR ( Amer) 101, Glucose 102 H, Lactate 0.6 L, Calcium 8.5, Total Bilirubin 0.4, AST 29, ALT 22, Alkaline Phosphatase 87, Total Creatine Kinase 60, C- Reactive Protein 33.4 H, Total Protein 7.6, Albumin 3.9, Globulin 3.7 H, Albumin/Globulin Ratio 1.1, Procalcitonin 0.152, Serum HCG, Qual Negative 03/31/23 13:39 03/31/23 13:39 Orders (Tests/Meds): ED MEDICATIONS Discontinued Medications Generic Name Dose Route Start Last Admin Trade Name Sumeet PRN Reason Stop Dose Admin Acetaminophen 1,000 mg 03/31/23 13:26 03/31/23 13:48 Acetaminophen 1,000mg/100ml Vial IV 03/31/23 13:27 1,000 mg ONCE ONE Administration Diazepam 5 mg 03/31/23 14:50 Diazepam 5mg Tablet PO 03/31/23 14:51 ONCE ONE Diphenhydramine HCl 12.5 mg 03/31/23 13:26 03/31/23 13:48 Diphenhydramine 50mg/Ml Vial IV 03/31/23 13:27 12.5 mg ONCE ONE Administration Diphenhydramine HCl 25 mg 03/31/23 14:17 03/31/23 14:50 Diphenhydramine 50mg/Ml Vial IV 03/31/23 14:18 25 mg ONCE ONE Administration Lactated Ringer's 1,000 mls @ 999 mls/hr 03/31/23 13:26 03/31/23 13:49 Lactated Ringer's 1000 Ml Bag IV 03/31/23 14:26 999 mls/hr .Q1H1M ONE Administration Ketorolac Tromethamine 15 mg 03/31/23 13:26 03/31/23 13:48 Ketorolac 30mg/Ml Vial IV 03/31/23 13:27 15 mg ONCE ONE Administration Metoclopramide HCl 5 mg 03/31/23 13:26 03/31/23 13:48 Metoclopramide Hcl 10mg/2ml Vial IVP 03/31/23 13:27 5 mg ONCE ONE Administration ORDERS Category Date Time Status CT head/brain wo con Stat Cat Scan 03/31/23 13:26 Completed C-Reactive Protein Stat Lab 03/31/23 13:39 Completed Complete Blood Count Auto Diff Stat Lab 03/31/23 13:39 Completed Comprehensive Metabolic Panel Stat Lab 03/31/23 13:39 Completed Creatine Kinase Stat Lab 03/31/23 13:39 Completed Erythrocyte Sedimentation Rate Stat Lab 03/31/23 13:39 Completed HCG Qualitative, Serum Stat Lab 03/31/23 13:39 Completed Lactic Acid Stat Lab 03/31/23 13:39 Completed Procalcitonin Stat Lab 03/31/23 13:39 Completed Rapid PCR Covid and Flu A/B Stat Lab 03/31/23 13:30 Completed Urinalysis and Microscopic Stat Lab 03/31/23 14:15 Received Medical Decision Narrative: In summary, this patient is a 32-year-old female presenting to the Emergency Department for evaluation of headache, body aches, fever, and nausea. Differential diagnoses considered include but are not limited to viral syndrome, migraine, tension headache, encephalitis, meningitis, sepsis. Ruling out the most morbid conditions drove assessment. On exam, the patient is nontoxic-appearing. She has normal vital signs on cardiac telemetry with no tachycardia or fever. She has no meningismus or neurologic deficits. Patient expresses great concern over her headache, feeling that something is not right. She states that it is severe and in the posterior aspect of her head. She also states that she feels that her whole body is locked up. Workup included CBC, CMP, ESR, CRP, procalcitonin, lactic acid, CK, viral swab, urinalysis, test, and CT head without contrast. She was given a bolus of IV fluids as well as IV Toradol, acetaminophen, Reglan, and Benadryl symptomatic improvement. On reassessment, the patient is resting comfortably with significantly improved symptoms after administration of migraine cocktail medications above. She has full range of motion of her neck. She complains of some left-sided paraspinal/occipital pain of her neck. It is much improved, however. I feel t hat she likely has a tension headache versus migraine headache. She feels a little bit jittery after receiving Reglan. She was given oral Valium for further muscle relaxation and further jitteriness. She tolerated this well. Labs do not demonstrate any acutely concerning abnormalities with normal white blood cell count, normal lactic acid, and no other obvious acute concerns. Given her unusual headache, I ordered a CT scan of the head without contrast. I independently interpreted this prior to radiology read and noted no acute hemorrhage, mass, or other concerns. Patient continues to be feel better with no meningismus or neurologic deficits. She declines to provide urinalysis, as she is not having urinary symptoms. Given this, I do feel that she is appropriate for discharge with instructions for supportive management of likely tension headache versus migraine in the setting of cervicalgia. She was given instructions for supportive management, instructions for constipation follow-up, strict return precautions. She was discharged in stable condition. Critical Care Critical Care Time Critical Care Time: No
[2023-03-31 13:34] LABS: Coronavirus 19, PCR Not Detected (NotDetected); Influenza A, PCR Not Detected (NotDetected); Influenza B, PCR Not Detected (NotDetected)
[2023-03-31] MEDS: KETOROLAC 30MG/ML VIAL 15 MG IV (13:48)
[2023-03-31] MEDS: ACETAMINOPHEN 1,000MG/100ML VIAL 1000 MG IV (13:48)
[2023-03-31] MEDS: diphenhydrAMINE 50MG/ML VIAL 12.5 MG IV (13:48)
[2023-03-31] MEDS: METOCLOPRAMIDE HCL 10MG/2ML VIAL 5 MG IVP (13:48)
[2023-03-31] MEDS: LACTATED RINGERS 1000ML 1,000 ML 999 ML IV (13:49)
[2023-03-31 14:03] LABS: Basophils # 0.1 K/mm3 (0-0.2); Eosinophils # 0.1 K/mm3 (0.0-0.4); Eosinophils % 0.8 % (0.1-12.0); Hematocrit 35.2 % (37.0-47.0); Hemoglobin 12.3 g/dL (12.2-16.2); Lymphocytes % 18.1 % (10-50); Mean Corpuscular Hemoglobin 29.7 pg (27.0-31.2); Mean Platelet Volume 7.9 fl (7.4-10.4); Monocytes # 0.5 K/mm3 (0.1-1.0); Neutrophils % 71.2 % (37.0-80.0); Platelet Count 167 K/mm3 (142-424); Red Blood Count 4.15 M/mm3 (4.20-5.40); Red Cell Distribution Width 14.7 % (11.5-17.5); White Blood Count 5.6 K/mm3 (4.8-10.8)
[2023-03-31 14:14] LABS: Chloride 105 mmol/L (98-107); Potassium 3.7 mmoL/L (3.5-5.1); Sodium 136 mmol/L (136-145)
[2023-03-31 14:17] LABS: Alanine Aminotransferase 22 U/L (12-78); Albumin Level 3.9 g/dl (3.5-5.0); Albumin/Globulin Ratio 1.1 (1.1-1.8); Alkaline Phosphatase 87 U/L (38-126); Anion Gap 7.7 mEq/L (5-15); Aspartate Amino Transferase 29 U/L (14-36); Bilirubin,Total 0.4 mg/dl (0.2-1.3); Blood Urea Nitrogen 7 mg/dl (7-17); Calcium 8.5 mg/dl (8.4-10.2); Carbon Dioxide 27 mmol/L (22.0-30.0); Creatine Kinase 60 U/L (30-135); Creatinine Clearance Estimated 137 mL/min (50-200); Estimated Glomerular Filt Rate 83 ml/min (>60); GFR (African American) 101 ML/MIN (>60); Globulin 3.7 g/dL (1.3-3.2); Glucose 102 mg/dl (74-100); Total Protein,Serum 7.6 g/dl (6.3-8.2)
[2023-03-31 14:18] LABS: Lactic Acid 0.6 mmol/L (0.7-2.1)
[2023-03-31 14:23] LABS: C-Reactive Protein 33.4 mg/L (0-4)
[2023-03-31 14:33] LABS: Erythrocyte Sedimentation Rate 36 mm/hr (0-20)
[2023-03-31 14:46] LABS: HCG Qualitative, Serum Negative (Negative)
[2023-03-31] MEDS: diphenhydrAMINE 50MG/ML VIAL 25 MG IV (14:50)
[2023-03-31 14:58] LABS: Microscopic, Urine URINE MICROSCOPIC (MICROSCOPIC)
[2023-03-31 15:04] LABS: Procalcitonin 0.152 ng/mL (0.0-2.0)
[2023-03-31 15:09] LABS: Appearance,Urine CLEAR (Clear); Bilirubin,Urine Negative (Negative); Blood, Urine Negative (Negative); Color,Urine YELLOW (Yellow); Glucose,Urine (UA) Negative (Negative); Ketones,Urine Negative (Negative); Leukocyte Esterase,Urine Negative (Negative); Nitrate,Urine Negative (Negative); PH,Urine 7.5 (5.0-8.5); Protein,Urine Negative (Negative); Specific Gravity, Urine 1.015 (1.005-1.030); Urobilinogen,Urine 0.2 EU/dl (0.2)
[2023-03-31 15:18] VITALS: BP 134/77; PULSE 80; RESP 18; TEMP 36.6; O2SAT 97
[2023-03-31 15:22] LABS: Bacteria,Urine 1+ /lpf
== END 2023-03-31 15:25 | disposition home or self-care (01) ==
PROVIDERS: Emergency Provider Emergency Medicine
DX: G44.89 Other headache syndrome (principal); M54.2 Cervicalgia; L97.929 Non-pressure chronic ulcer of unspecified part of left lower leg with unspecified severity
CPT/HCPCS: 70450; 80053; 81001; 82550; 83605; 84145; 84703; 85025; 85651; 86140; 87636; 96361; 96374; 96375; 96376; 99285; J0131

== ENCOUNTER 2023-04-03 09:48 | Day surgery (SDC) | payer OTHER, SELFPAY ==
[2023-04-03] VITALS (9 sets, daily range): BP systolic 105–152; BP diastolic 64–82; PULSE 75–108; RESP 15–22; TEMP 36–36.6; O2SAT 95–100; BMI 25.2
[2023-04-03 10:17] LABS: Urine Pregnancy, HCG Qual. Negative (Negative)
[2023-04-03] MEDS: LACTATED RINGERS 1000ML 1,000 ML 25 ML IV (10:22)
[2023-04-03] MEDS: CEFAZOLIN SODIUM 1 GM in 0.9 % SODIUM CHLORIDE 50 ML IV (11:46)
--- NOTE | 2023-04-03 11:56 | EXP.ANES.CKL ---
[facility] Disclaimer: The information contained in this section may have been updated after the patient was seen, as this information can be updated by other users. Medical History ADHD Anxiety Depression PTSD (post-traumatic stress disorder) Surgical History (Updated 04/03/23 @ 10:27 by Cl Saucedo RN) History of appendectomy History of surgery on lower extremity History of thyroid surgery Family History Other Family history of diabetes mellitus (DM) Social History (Updated 04/03/23 @ 10:28 by Cl Saucedo RN) Smoking Status: Never smoker alcohol intake: never substance use type: marijuana current occupational status: employed Travel in the last 8 weeks: None [facility] Anesthesia Checklist Patient Identification Patient Identification: Arm Band, Verbal (Name & ) and Other: (Girlfriend) Structural Data Admitted From: Home Planned Operative Procedure/s: I&D Left leg wound w/[lacement of wound vac Consent for Planned Operative Procedure(s) Verified: Yes Verified Documents: Surgical Consent and History and Physical NPO Status Verified Time NPO: 22:00 Chart Verification Results Verified: CBC, BMP and HCG Additional verifications Patient : No Anesthesia Reactions: Yes (vomiting) Hx Blood Transfusions: No Blood Transfusion Reaction: No Cardiovascular Assessment Heart Sounds: S1 & S2 Pulse Rhythm: Irregular Airway Assessment Mallampati Score:: Class I C-Spine Mobility Assessed: Yes (FROM) TMJ Mobility Assessed: Yes Dentition: Good Dentition (Nothing loose per pt.) Neurological Assessment Level of Consciousness: Awake, Alert, Appropriate and Follows Commands Hx Seizures: No Numbness or tingling in extremities: No Anesthesia Plan Anesthesia Risk discussed: Yes Anesthesia Plan: Verified ASA Class: II Anesthesia Type: General
--- NOTE | 2023-04-03 12:13 | P.OP_ITS ---
Date of procedure: 04/03/23 Pre-op Diagnosis:: Nonhealing wound left lower extremity Post-op Diagnosis:: Same Procedure performed:: Irrigation and sharp debridement 2-1/2 x 2 cm by half a centimeter deep. placement of wound VAC left lower extremity Surgeon:: Aaron Quintero DO Anesthesia: GETA Estimated blood loss (mL): 0 Operative findings:: See dictation Operative note:: Patient is identified preoperatively. Left lower extremity marked with yes my initials. Taken the operative suite placed upon operating bed general anesthesia ministered airway secured. Left lower extremity was then prepped and draped with a Betadine prep. Once prepped and draped final operative timeout performed to identify proper patient procedure and extremity everyone involved the case agreed. There is no count indication beginning. She did receive preo perative antibiotics. There was a nonhealing wound on the posterior aspect of the left leg in the bend of the knee posteriorly using sharp debridement with a curette and the knife was clean skin edges and clean wound bed was obtained with nice healthy healing bleeding tissue. Once complete debridement was performed the Pulsavac was used as well for debridement the wound was clean and the wound VAC supplies were open. Using a double sponge on the wound VAC the pad was cut to the proper size to fit the wound and again doubled up. The wound VAC dressing was placed a hole was cut for the suction device which was then connected to suction showed no leaks. And then was connected to the wound VAC device with 125 mg mercury pressure on the constant setting. There is no leaks. Patient tolerated procedure well was awakened anesthesia taken recovery stable condition. Condition: stable Disposition: PACU Complications:: None apparent
--- NOTE | 2023-04-03 12:13 | EXP.ANES.I ---
[facility] Anesthesia Record Part I Anesthesia Record I Intake, IV Amount: 700 Hydration: Adequate Estimated blood loss (mL): 25 Urine output (mL): 0 Blood Products used (#): none Blood Pressure: 152/82 SaO2: 100 Pulse Rate: 108 Airway Patency: Patent Respiratory Rate: 22 Temperature: 96.8 F Patient is:: Awake, Drowsy and Stable Stable to PACU at:: 12:15
[2023-04-03] MEDS: HYDROMORPHONE 2MG/ML SYRINGE 0.299999999999999989 MG IV (12:35)
[2023-04-04 09:10] VITALS: BP 134/75; PULSE 90; RESP 15; TEMP 36.4; O2SAT 95
--- NOTE | 2023-04-04 09:10 | P.PNANES_ITS ---
[facility] Anesthesia Record Part II Anesthesia Record Part II Discharge Time: 12:40 Destination: Surgical Day Care (OP Surgery) PACU nurse assessment reviewed?: Yes Patient Condition:: Good Anesthesia Complications:: None Swallowing reflex intact?: Yes Airway Patency: Patent Cyanosis?: No Blood Pressure: 134/75 SaO2: 95 Respiratory Rate: 15 Pulse Rate: 90 Temperature: 97.6 F Mental Status: Alert & Oriented Pain level:: 7 Nausea and/or vomitting:: None Intake, IV Amount: 0 Hydration: Adequate
== END 2023-04-03 13:25 | disposition home or self-care (01) ==
PROVIDERS: PCP Orthopaedic Surgery; Visit Provider Orthopaedic Surgery
PROC: (CPT 11042; principal; 2023-04-03 11:15)
DX: L97.229 Non-pressure chronic ulcer of left calf with unspecified severity (principal)
CPT/HCPCS: 11042; 81025; 96374

== ENCOUNTER 2023-04-19 09:00 | Outpatient (RCR) | payer OTHER, SELFPAY ==
--- NOTE | 2023-04-09 13:50 | HMH.PTOPWND ---
Rehab Outpt Wound Evaluation Rehab OP Wound Evaluation Start: 04/09/23 10:04 Freq: Status: Active Protocol: Document 04/09/23 13:37 QUINCY (Rec: 04/09/23 13:49 PH[place] [id number]) E-signed By Efe Ramachandran, PT Subjective/History History History This is the initial PT eval for Ambika Gaspar, 32 yowf who presents with L LE popliteal wound after OR for I &D on 04/03/23. She had wound VAC dressing applied in the OR . She reports continued pain and stiffness in the L LE as expected. She presents with the dressing still intact and VAC canister ~ 3/4 full. Original injury was from a INTERMEDIATE . Subjective Subjective Currently she reports pain 6/ 10, at worst pain 9/10. Increased edema noted, no pitting at this time. Pt unable to achieve full L knee extension currently. New diagnosis of cancer in past 12 No months? Wound Eval Wound Left Posterior Knee Wound Type I&D surgery Is This a Chronic Wound No Wound Length (cm) 5.5 Wound Width (cm) 4.9 Wound Depth (cm) 0.4 Wound Bed Appearance Beefy Red Percentage Granulated (%) 100 Wound Margins Description Well Defined Surrounding Tissue Appearance [place] Edema Type Non-Pitting Drainage Description Sanguineous Drainage Amount Moderate Wound Topical Solution/Irrigant Saline Irrigant Packing Type Woundvac Sponge Primary Dressing Transparent Drape Wound Debridement Method Gauze,Mechanical Wound Debridement Amount of Tissue None Removed Dressing Change Patient Tolerance Tolerated Well Drain Left Posterior Knee Drain Type Woundvac Drainage Description Serosanguineous Output, Drainage Amount (ml) 200 Odor None/Absent Vacuum Pressure Setting (mmHg) 125 Vacuum Mode Setting Continuous Wound Problems/Impairments Impairments Problems/Impairmments Palpation Tenderness,Impaired Range of Motion,Impaired Strength,Impaired Endurance, Impaired Walking,Impaired Standing,Increased Edema,Wound Care Needs,Subjective C/O Pain,Impaired Self Care/Self Management Prognosis Rehab Potential Good Clinical Impression Consistent with Diagnosis Yes Short Term Goals Number of Weeks 2 Decrease Wound Area Yes: by 25% Decrease Subjective C/O Pain Yes: 06/04 Care Home Goals Number of Weeks 4 Decrease Lymphedema Yes Decrease Wound Area Yes: by 75% Decrease Subjective C/O Pain Yes: 03/06 Patient to be Ind w/ HEP Yes Patient to be Ind w/ Home Wound Care/ Yes Dressing Changes Patient to Understand Lymphedema Yes Treatment and Exercises Outpatient Therapy Plan of Care Treatment Plan May Include Therapeutic Exercise Including Home Yes Exercise Program Manual Therapy Techniques Yes Neuromuscular Re-education Yes Therapeutic Activities to Return to Yes Previous Functional/Work Level ADL/Self Care Education Yes Orthotics/Bracing/Splinting Yes Manual Lymphatic Drainage Yes Wound Care Yes Eval/Re-Eval Yes Frequency Times per week 2-3 Duration Number of Weeks 4 Addendums This patient is a candidate for social No or vocational rehab? Patient/Guardian verbally acknowledges Yes understanding of treatment program and consents to further treatment? Patient/Guardian verbally acknowledges Yes understanding of diagnosis, prognosis and goals for treatment? Eval Complexity PT Charges 72825 - High Complexity PHYSICIAN CERTIFICATION: I certify the specified therapy services for Ambika Gaspar are required, authorized, and reviewed every 30 days.
== END 2023-04-19 09:05 | disposition home or self-care (01) ==
LOC: PT 09:00
PROVIDERS: Visit Provider Orthopaedic Surgery
DX: M79.662 Pain in left lower leg (principal); S81.802A Unspecified open wound, left lower leg, initial encounter
CPT/HCPCS: 97163; 97605

== ENCOUNTER 2023-04-30 14:51 | Outpatient (RCR) | payer OTHER, SELFPAY | END 2023-04-30 15:30 | disposition home or self-care (01) | LOC: PT 14:51 | PROVIDERS: Visit Provider Orthopaedic Surgery | DX: L97.929 Non-pressure chronic ulcer of unspecified part of left lower leg with unspecified severity (principal); S81.002A Unspecified open wound, left knee, initial encounter; L98.499 Non-pressure chronic ulcer of skin of other sites with unspecified severity | CPT/HCPCS: 97760 ==

== ENCOUNTER 2023-09-14 13:37 | Emergency (ER) | payer OTHER, SELFPAY ==
[2023-09-14 13:40] VITALS: BP 134/80; PULSE 87; RESP 19; TEMP 36.6; O2SAT 100; BMI 25.8
--- NOTE | 2023-09-14 14:02 | ED_ITS ---
Discharge Plan Disposition Patient Disposition: Home, Self-Care Condition: Good Prescriptions Prescriptions: New prednisone 20 mg tablet 20 mg PO BID Qty: 10 0RF Referrals Follow up/Referrals: Provider,Referral, MD [Primary Care Provider] - See instructions Clinical Impressions Clinical Impression: Hives Instructions Patient Instructions: DI for Hives, Hives (Alternative Therapy) [facility] [facility] [place] HPI General Stated complaint: hives,- arms, mouth Mode of Arrival: Ambulatory Source of Information: Patient Limitations: No Limitations Time Seen by Provider: 09/14/23 14:02 Description of Symptoms (Recalled from Triage Doc. by RN): PATIENT C/O HIVES ALL OVER THAT COME AND GO OVER THE LAST MONTH. SHE STATES AREAS ARE ITCHY, HOT, SOMETIMES BRUISED, AND VARY IN SIZE HEENT Symptoms (Recalled from RN notes): No Resp Symptoms (Recalled from RN notes): No Skin Symptoms (Recalled from RN notes): Yes MS Symptoms (Recalled from RN notes): No Functional Status (Recalled from RN notes): WNL History of Present Illness Provider Complaint: 32 yr old female presents for hives that are scattered on leg,arm, back and on inside of lip for over a month but the one on her mouth started this am. pt states the last time she had hives inside her mouth her throat closed along the road. pt states she has dealt with hives for many years and states they removed her thyroid because they said that was what was causing hives. pt states she has not taken Synthroid for over 5 yrs. pt states she was told she still had some thyroid tissue left. Related Data Previous Rx's Medication Instructions Recorded prednisone 20 mg tablet 20 mg PO BID #10 tabs 09/14/23 Allergies Allergy/AdvReac Type Severity Reaction Status Date / Time loratadine [From Claritin-D] Allergy Verified 06/11/23 10:54 pseudoephedrine Allergy Verified 06/11/23 10:54 [From Claritin-D] Worker's Comp Is this a Worker's Comp case?: No [facility] Disclaimer: The information contained in this section may have been updated after the patient was seen, as this information can be updated by other users. Medical History , TECH ED TEACHER) ADHD Anxiety PTSD (post-traumatic stress disorder) Depression Surgical History , TECH ED TEACHER) History of surgery on lower extremity History of appendectomy History of thyroid surgery Family History , TECH ED TEACHER) Family history of diabetes mellitus (DM) Social History , TECH ED TEACHER) Smoking Status: Never smoker alcohol intake: never substance use type: marijuana current occupational status: employed Travel in the last 8 weeks: None ROS Obtained: Yes All systems reviewed & no additional complaints except as documented Constitutional Constitutional: Reports system reviewed and no additional complaints, except as documented Eyes Eyes: Reports system reviewed and no additional complaints, except as documented ENT Ears, Nose, Mouth, and Throat: Reports system reviewed and no additional complaints, except as documented, Reports as per HPI and Reports other Cardiovascular Cardiovascular: Reports system reviewed and no additional complaints, except as documented Respiratory Respiratory: Reports system reviewed and no additional complaints, except as documented Musculoskeletal Musculoskeletal: Reports system reviewed and no additional complaints, except as documented Integumentary/Breasts Skin/Breast: Reports system reviewed and no additional complaints, except as documented, Reports as per HPI, Reports pruritus and Reports rash Neurologic Neurologic: Reports system reviewed and no additional complaints, except as documented Endocrine Endocrine: Reports system reviewed and no additional complaints, except as documented Hematologic/Lymphatic Henatologic/Lymphatic: Reports system reviewed and no additional complaints, except as documented Allergic/Immunologic Allergic/Immunologic: Reports system reviewed and no additional complaints, except as documented, Reports as per HPI and Reports urticaria Physical Exam General General appearance: alert and in no apparent distress ENT ENT exam: Present normal exam, mucous membranes moist, TM's normal bilaterally and other (small red area on the inside lower lip) Respiratory Respiratory exam: Present normal lung sounds bilaterally Cardiovascular Cardiovascular exam: Present regular rate and normal rhythm Neurological Exam Neurological exam: Present alert and oriented X3 Skin Skin exam: Present warm and rash Expanded Skin Exam Type of lesion: Present rash Body image: 2 1. hive 2. hive 3. hive 4. hive 5. hive Medical Decision Making Medical Records Medical records reviewed: Yes I reviewed the patient's medical records. Wilner Inquiry Pt receiving controlled substance: No Wilner was queried for this patient: No Vital Signs: 09/14/23 13:40 Temperature 97.8 F Temperature Source Oral Pulse Rate [Left Brachial] 87 Respiratory Rate 19 Blood Pressure [Left Arm] 134/80 Blood Pressure Mean [Left Arm] 98 Blood Pressure Source [Left Arm] Automatic Cuff Blood Pressure Position [Left Arm] Sitting 02 Sat by Pulse Oximetry 100 Oxygen Delivery Method Room Air Lab Data 09/14/23 14:05 09/14/23 14:05 Orders (Tests/Meds): ED MEDICATIONS Generic Name Dose Route Start Last Admin Trade Name Freq PRN Reason Stop Dose Admin Diphenhydramine HCl 12.5 mg 09/14/23 13:59 Diphenhydramine 50mg/Ml Vial IV 09/14/23 14:00 ONCE ONE Famotidine 20 mg 09/14/23 13:59 Famotidine 20mg Tablet PO 09/14/23 14:00 ONCE ONE Methylprednisolone Sodium Succinate 125 mg 09/14/23 13:59 Methylprednisolone Sod Succ 125mg Vial IV 09/14/23 14:00 ONCE ONE ORDERS Category Date Time Status Alpha-Gal IgE Panel Stat Lab 09/14/23 13:59 Ordered CBC Man Diff [Complete Blood Count Man Dif] Stat Lab 09/14/23 13:59 Ordered CMP [Comprehensive Metabolic Panel] Stat Lab 09/14/23 13:59 Ordered Free T4 (Free Thyroxine) Stat Lab 09/14/23 13:59 Ordered TSH [Thyroid Stimulating Hormone] Stat Lab 09/14/23 13:59 Ordered
[2023-09-14 14:19] LABS: MANUAL DIFFERENTIAL MANUAL DIFFERENTIAL (MANUAL DIFF)
[2023-09-14] MEDS: FAMOTIDINE 20MG TABLET 20 MG PO (14:21)
[2023-09-14] MEDS: METHYLPREDNISOLONE SOD SUCC 125MG VIAL 125 MG IV (14:21)
[2023-09-14] MEDS: diphenhydrAMINE 50MG/ML VIAL 12.5 MG IV (14:22)
[2023-09-14 14:23] LABS: Basophils # 0.1 K/mm3 (0-0.2); Basophils % 0.9 % (0.1-2.0); Eosinophils # 0.1 K/mm3 (0.0-0.4); Eosinophils % 1.7 % (0.1-12.0); Hematocrit 38.4 % (37.0-47.0); Hemoglobin 13.2 g/dL (12.2-16.2); Lymphocytes # 1.3 K/mm3 (0.7-4.5); Lymphocytes % 18.6 % (10-50); Mean Corpuscular HGB Conc 34.5 g/dL (31.8-35.4); Mean Corpuscular Volume 92.7 fl (81-99); Monocytes # 0.5 K/mm3 (0.1-1.0); Monocytes % 6.6 % (1.7-9.3); Neutrophils # 5.2 K/mm3 (1.8-7.8); Neutrophils % 72.2 % (37.0-80.0); Platelet Count 203 K/mm3 (142-424); Red Blood Count 4.14 M/mm3 (4.20-5.40); Red Cell Distribution Width 14.4 % (11.5-17.5); White Blood Count 7.2 K/mm3 (4.8-10.8)
[2023-09-14 14:33] LABS: Chloride 109 mmol/L (98-107)
[2023-09-14 14:34] LABS: Potassium 3.9 mmoL/L (3.5-5.1); Sodium 141 mmol/L (136-145)
[2023-09-14 14:36] LABS: Alanine Aminotransferase 15 U/L (12-78); Alkaline Phosphatase 66 U/L (38-126); Aspartate Amino Transferase 24 U/L (14-36); Bilirubin,Total 0.7 mg/dl (0.2-1.3); Blood Urea Nitrogen 14 mg/dl (7-17); Creatinine Clearance Estimated 138 mL/min (50-200); Estimated Glomerular Filt Rate 83 ml/min (>60); GFR (African American) 101 ML/MIN (>60)
[2023-09-14 14:37] LABS: Albumin Level 4.2 g/dl (3.5-5.0); Albumin/Globulin Ratio 1.2 (1.1-1.8); Anion Gap 9.9 mEq/L (5-15); Calcium 8.9 mg/dl (8.4-10.2); Carbon Dioxide 26 mmol/L (22.0-30.0); Globulin 3.6 g/dL (1.3-3.2); Glucose 96 mg/dl (74-100); Total Protein,Serum 7.8 g/dl (6.3-8.2)
[2023-09-14 14:51] LABS: Lymphocytes % 26 % (10-50); Monocytes % 2 % (2-9); Neutrophils % 72 % (42-76); Total Cells Counted 100
[2023-09-14 14:52] LABS: Platelet Estimate Normal; Stomatocytes 1+
[2023-09-14 15:08] LABS: Free T4 (Free Thyroxine) 0.76 ng/dl (0.78-2.19); Thyroid Stimulating Hormone 3.38 uIU/mL (0.465-4.68)
[2023-09-14 15:16] VITALS: BP 134/80; PULSE 87; RESP 19; TEMP 36.6; O2SAT 100
[2023-09-19 05:10] LABS: F026-IgE Pork < 0.10 kU/L (Class 0); F027-IgE Beef < 0.10 kU/L (Class 0); F088-IgE Lamb < 0.10 kU/L (Class 0); Immunoglobulin E, Total 476 IU/mL (6-495); O215-IgE Alpha-Gal 0.11 kU/L (Class 0/I)
== END 2023-09-14 15:27 | disposition home or self-care (01) ==
PROVIDERS: Emergency Provider Nurse Practitioner Family
DX: L50.0 Allergic urticaria (principal)
CPT/HCPCS: 80053; 84439; 84443; 85007; 85014; 85018; 85048; 85049; 96372; 99212; 99214; G0463; J1200; J2919

== ENCOUNTER 2024-11-03 07:58 | Emergency (ER) | payer SELFPAY ==
--- NOTE | 2024-11-03 08:07 | XR_ITS ---
FINAL REPORT CLINICAL HISTORY: Knee buckled, pain, inability bear weight FINDINGS: AP and lateral views of the right tibia and fibula were obtained. There is no acute fracture of the right tibia or fibula. The knee and ankle appear intact. The soft tissues are normal. IMPRESSION: No acute osseous abnormality of the right tibia or fibula. Reviewed, Interpreted and Dictated by Shanti Cardenas MD Transcribed by Shania Nguyen Authenticated and [facility]
--- NOTE | 2024-11-03 08:07 | XR_ITS ---
FINAL REPORT CLINICAL HISTORY: Knee buckled, pain, inability bear weight FINDINGS: RIGHT KNEE 3 views were obtained. There is no acute fracture or dislocation. Visualized joint spaces are normally aligned. No joint effusion is seen. Soft tissues are unremarkable. IMPRESSION: No acute bony abnormality. If pain persists, consider MRI for further evaluation. Reviewed, Interpreted and Dictated by Shanti Cardenas MD Transcribed by Shania Nguyen Authenticated and [facility]
[2024-11-03 08:08] VITALS: BP 120/100; PULSE 94; RESP 20; TEMP 36.5; O2SAT 97; BMI 33.5
--- NOTE | 2024-11-03 08:08 | ED_ITS ---
Discharge Plan Disposition Patient Disposition: Home, Self-Care Prescriptions Prescriptions: New oxycodone 5 mg tablet 5 mg PO Q6H PRN (Reason: pain) Qty: 12 0RF No Action amoxicillin 500 mg capsule 500 mg PO TID 10 Days Qty: 30 0RF Referrals Follow up/Referrals: Aaron Quintero DO [Staff Physician, Orthopedics] - See instructions Provider,Referral, [Primary Care Provider, Medical] - See instructions Activity Restrictions/Add. Instructions Additional Instructions/Restrictions: Your x-rays and CT scans did not show any broken bones. It is likely that you have injured one of the ligaments in your knee. Remain in the brace until you are able to get follow-up with Dr. Quintero. Use the crutches to help walk. You are being prescribed oxycodone for severe pain. In addition to this, you can take Tylenol 1000 mg as well as 600 mg of ibuprofen every 6 hours as needed to help with pain. Avoid bearing weight on the right leg. If you develop any new or worsening symptoms, or if you become concerned for your health for any reason, return to the emergency department for evaluation. Clinical Impressions Clinical Impression: Injury of knee, right Stand Alone Forms Stand Alone Forms: Work/School Release Print Language Print Language: Tamazight Discharge ED Provider: Adair Rushing Adult HPI General Chief complaint: Extremity Problem,Nontraumatic Stated complaint: AO 11/02/24 @ 1745 R Knee Buckled Time Seen by Provider: 11/03/24 08:05 Mode of Arrival: Wheelchair Source of Information: Patient Limitations: No Limitations History of Present Illness HPI narrative: Ambika Gaspar is a 33-year-old female with a history of depression, PTSD, anxiety, left lower extremity surgeries, thyroid surgery, appendectomy who presents to the emergency department for complaints of right knee pain. Patient states that yesterday, she was getting off of a 4 inman when she felt her right knee buckle. Ever since then, she has had severe pain in the lower part of her anterior right knee and has been unable to bear weight or bend the knee. She denies hearing a pop or feeling a pop. She states that she does not rumor exactly how her knee buckled. She denies any other trauma or injuries. She denies any symptoms swelling or bruising. Related Data Previous Rx's ?Medication ?Instructions ?Recorded amoxicillin 500 mg capsule 500 mg PO TID 10 days #30 c aps 08/07/24 oxycodone 5 mg tablet 5 mg PO Q6H PRN pain #12 tab s 11/03/24 Allergies Allergy/AdvReac Type Severity Reaction Status Date / Time loratadine (From Claritin-D) Allergy Verified 08/07/24 15:10 pseudoephedrine (From Allergy Verified 08/07/24 15:10 Claritin-D) acetaminophen (From Vicodin) AdvReac Severe Verified 08/07/24 15:10 hydrocodone (From Vicodin) AdvReac Severe Verified 08/07/24 15:10 [facility] Disclaimer: The information contained in this section may have been updated after the patient was seen, as this information can be updated by other users. Medical History ADHD Anxiety PTSD (post-traumatic stress disorder) Depression Surgical History History of surgery on lower extremity History of appendectomy History of thyroid surgery Family History Other Family history of diabetes mellitus (DM) Social History Smoking Status: Never smoker alcohol intake: never substance use type: marijuana current occupational status: employed Travel in the last 8 weeks?: None Have you lived/traveled outside US in past 30 days?: No Contact w/someone who lives/traveled outside US past 30 days?: No Exposure to someone with infectious disease in past 14 days?: No Do you have a fever (greater than 100.4 F or 38 C)?: No Have you tested positive for COVID-19?: No Exposed to someone with COVID-19 in past 14 days?: No Do you have a sore throat?: No Do you have a cough?: No Do you have any weakness?: No Do you have any diarrhea?: No Are you experiencing any unusual bleeding?: No Do you have any muscle aches/pain?: No Do you have any abdominal pain?: No Are you experiencing loss of taste or smell?: No Other Medical History Have you received the Flu Vaccine for this season: No Have you received the Pneumonia Vaccine: No ROS Obtained: Yes Systems reviewed as appropriate & no additional complaints except as documented Physical Exam General General appearance: alert and in no apparent distress Comment: Tearful Head Head exam: atraumatic Eye Eye exam: Present normal appearance ENT ENT exam: Present normal external ear exam Neck Neck exam: Present full ROM Chest Chest inspection: Present symmetric chest wall rise Respiratory Respiratory exam: Present normal lung sounds bilaterally; Absent respiratory distress, wheezes or stridor Cardiovascular Cardiovascular exam: Present regular rate and normal rhythm Abdominal Exam Abdominal exam: Present soft; Absent tenderness or guarding Extremities Exam Extremities exam: Present normal inspection Expanded Lower Extremity Exam Right: Leg image: 2 1. Tenderness and bruising. Limited ROM due to pain. 2+ DP and PT pulses. Neuro vastly intact distally Back Exam Back exam: Present normal inspection Neurological Exam Neurological exam: Present alert and oriented X3 Psychiatric Psychiatric exam: Present normal affect and anxious Skin Skin exam: Present warm and dry Medical Decision Making Medical Records Screening: Per USPSTF and CDC recommendations, given the prevalence of disease in our region, it is our hospital?s policy to screen for HIV and viral Hepatitis for all patients aged 18 and over and those with ongoing risk factors. Wilner Inquiry Pt receiving controlled substance: Yes Wilner was queried for this patient: Yes Risks and benefits of using a controlled substance: were discussed with pt by me Vital Signs: 11/03/24 08:08 11/03/24 08:20 11/03/24 09:39 Temperature 97.7 F Temperature Source Oral Pulse Rate 58 L 66 Pulse Rate [Right] 94 H Respiratory Rate 20 Blood Pressure 124/74 116/74 Blood Pressure [Right Arm] 120/100 H Blood Pressure Mean [Right Arm] 106 02 Sat by Pulse Oximetry 97 99 98 Oxygen Delivery Method Room Air 11/03/24 09:40 11/03/24 11:48 Temperature 98.4 F Temperature Source Pulse Rate 71 64 Pulse Rate [Right] Respiratory Rate 18 Blood Pressure 106/75 L 106/75 L Blood Pressure [Right Arm] Blood Pressure Mean [Right Arm] 02 Sat by Pulse Oximetry 98 Oxygen Delivery Method Orders (Tests/Meds): ED MEDICATIONS Discontinued Medications Generic Name Dose Route Start Last Admin Trade Name Freq PRN Reason Stop Dose Admin Ketorolac Tromethamine 15 mg 11/03/24 10:06 11/03/24 10:13 Ketorolac 15mg/Ml Vial IM 11/03/24 10:07 15 mg ONCE ONE Administration Oxycodone HCl 5 mg 11/03/24 08:08 11/03/24 08:12 Oxycodone 5mg Immediate Release Tablet PO 11/03/24 08:09 5 mg ONCE ONE Administration ORDERS Category Date Time Status CT knee RT wo con Stat Cat Scan 11/03/24 10:02 Completed Fibula/tibia XR right 2 views [XR tibia fibula RT 2V] Exams 11/03/24 08:07 Completed Stat Knee XR right 2 views [XR knee RT 2V] Stat Exams 11/03/24 08:07 Completed Medical Decision Narrative: Ambika Gaspar is a 33-year-old female with a history of depression, PTSD, anxiety, left lower extremity surgeries, thyroid surgery, appendectomy who presents to the emergency department for complaints of right knee pain. Patient states that yesterday, she was getting off of a 4 inman when she felt her right knee buckle. Ever since then, she has had severe pain in the lower part of her anterior right knee and has been unable to bear weight or bend the knee. She denies hearing a pop or feeling a pop. She states that she does not rumor exactly how her knee buckled. She denies any other trauma or injuries. She denies any symptoms swelling or bruising. On arrival, patient is hemodynamically stable, no acute respiratory distress, maintaining appropriate oxygen saturation on room air. Physical exam, stated above, revealed uncomfortable. Female in no respiratory distress. She is tearful. She has limited range of motion of the right knee secondary to pain. There is no significant swelling. There is mild amount of bruising in the inferior anterior portion of the knee. This is where she is most tender, which is right over the tibial plateau. 2+ DP and PT pulses. Neuro vastly intact distally. Patient states that she cannot tolerate hydrocodone or Percocet as it makes her feel strange, however she has tolerated oxycodone in the past. Differential diagnosis includes, but is not limited to: Tibial plateau fracture, ligamentous injury, patellar fracture, among others. The most morbid conditions were considered and workup was based on these. Initial workup in the emergency room included: Right knee x-rays, right tib-fib x-rays. Patient's pain was treated with 5 mg of oxycodone. X-ray imaging was interpreted by me personally. No acute fracture or dislocation. No significant swelling appreciated. See final radiology report for details. On reassessment, patient states that the oxycodone took the edge off but she is still having a fair amount of pain. Will administer 15 mg of IM Toradol. Patient is still unable to bear weight on her right knee and given continued concern for tibial plateau fracture that was not appreciated on plain films, will obtain CT imaging of the right knee to evaluate further. CT imaging was interpreted by me personally and shows no evidence of fracture or dislocation. See final radiology report for details. Given this, patient was placed in ACL brace and provided crutches. There is concern that she may have hyperextended her knee and caused a ligamentous injury. Will give follow-up with Dr. Quintero with orthopedic surgery as she will likely need MRI imaging. I will also send with a short course of oxycodone to help with severe pain. Encouraged her to take Tylenol and ibuprofen as well. Return precautions were given. All questions were answered. She demonstrated understanding and was in agreement this plan. She was then discharged from emergency department in stable condition. Critical Care Critical Care Time Critical Care Time: No
[2024-11-03] MEDS: OXYCODONE 5MG IMMEDIATE RELEASE TABLET 5 MG PO (08:12)
[2024-11-03 08:20] VITALS: BP 124/74; PULSE 58; O2SAT 99
[2024-11-03 09:39] VITALS: BP 116/74; PULSE 66; O2SAT 98
[2024-11-03 09:40] VITALS: BP 106/75; PULSE 71; O2SAT 98
--- NOTE | 2024-11-03 10:02 | CT_ITS ---
FINAL REPORT TECHNIQUE: Thin section axial images were obtained through the lower extremity without contrast. Reconstruction images were obtained from the axial data. Exam was performed using dose reduction technique. CLINICAL HISTORY: knee pain, non-ambulatory, tibial plateau fx? FINDINGS: There is no acute fracture or dislocation. No acute osseous abnormality is identified. No joint effusion is identified. There is lateral patellar tilt without subluxation or dislocation. Remaining soft tissues are unremarkable. IMPRESSION: No acute fracture or joint effusion. If pain persists, consider MRI. Reviewed, Interpreted and Dictated by Shanti Cardenas MD Transcribed by Beverly Avery Authenticated and [facility]
[2024-11-03] MEDS: KETOROLAC 15MG/ML VIAL 15 MG IM (10:13)
[2024-11-03 11:48] VITALS: BP 106/75; PULSE 64; RESP 18; TEMP 36.9; O2SAT 98
== END 2024-11-03 11:53 | disposition home or self-care (01) ==
PROVIDERS: Emergency Provider Student in an Organized Health Care Education/Training Program
DX: S89.91XA Unspecified injury of right lower leg, initial encounter (principal)
CPT/HCPCS: 73560; 73590; 73700; 96372; 99283; 99284; J1885

== ENCOUNTER 2025-02-19 07:22 | Emergency (ER) | payer SELFPAY ==
[2025-02-19 07:33] VITALS: BP 117/63; PULSE 111; RESP 18; TEMP 37.3; O2SAT 99; BMI 32.5
--- NOTE | 2025-02-19 07:35 | ECG_ITS ---
APPROVED REPORT Exam: Resting ECG HR:105 bpm ECG Measurements Heart Rate 105 AXES AR 124 P 45 QRSd 89 QRS 81 QT 314 T 44 QTc 375 Conclusion SINUS TACHYCARDIA POSSIBLE RIGHT VENTRICULAR CONDUCTION DELAY [RSR (QR) IN V1/V2] ABNORMAL RHYTHM ECG UNCONFIRMED REPORT Sinus tachycardia. No STEMI Electronically signed by : NURIA WHITMAN, 02/19/2025 15:22:02
--- NOTE | 2025-02-19 07:35 | XR_ITS ---
FINAL REPORT CLINICAL HISTORY: Shortness of breath, cough COMPARISON: None FINDINGS: A single frontal view of the chest was obtained. No acute pulmonary opacity is present. There is no evidence of effusion or pneumothorax. Mediastinum is unremarkable. Heart size is normal. IMPRESSION: No acute abnormality. Reviewed, Interpreted and Dictated by Kevin Goldstein MD Transcribed by Harriet Zepeda Authenticated and [facility]
--- NOTE | 2025-02-19 07:39 | HMH.EDGENADL ---
Discharge Plan Disposition Patient Disposition: Home, Self-Care Prescriptions Prescriptions: New prednisone 10 mg tablet 10 mg PO DIRECTED Qty: 12 0RF Rx Instructions: Day 1 (tomorrow): Take 40 mg (4 tabs) Day 2: Take 30 mg (3 tabs) Day 3: Take 20 mg (2 tabs) Day 4: Take 20 mg (2 tabs) Day 5: Take 10 mg (1 tab) epinephrine [EpiPen 2-Tima] 0.3 mg/0.3 mL auto-injector 0.3 mg IM Q10M PRN (Reason: anaphylaxis) Qty: 2 0RF Rx Instructions: for 2 doses ondansetron 4 mg tablet,disintegrating 4 mg PO Q6H PRN (Reason: nausea and vomiting) Qty: 12 0RF No Action amoxicillin 500 mg capsule 500 mg PO TID 10 Days Qty: 30 0RF oxycodone 5 mg tablet 5 mg PO Q6H PRN (Reason: pain) Qty: 12 0RF Referrals Follow up/Referrals: Provider,Referral, MD [Referring, Medical] - See instructions Activity Restrictions/Add. Instructions Additional Instructions/Restrictions: You are found to have the flu today, which likely explains your symptoms and rash. Encourage you to continue taking Benadryl at home to help with itchiness. I am also prescribing a short course of steroids and Zofran to help with nausea and vomiting. You were also found to have a mild kidney injury, likely from vomiting. Continue to drink plenty of fluids to stay hydrated. If you have evidence of severe allergic reaction, such as shortness of breath, abdominal pain, you can administer the EpiPen prescribed to you and call 911 as this can be a life-threatening allergic reaction. Clinical Impressions Clinical Impression: Influenza A, Acute urticaria, PLACIDO (acute kidney injury) Stand Alone Forms Stand Alone Forms: Work/School Release Instructions Patient Instructions: DI for Skin Abscess Print Language Print Language: Citizen Of [place] Discharge ED Provider: Adair Rushing Adult HPI General Chief complaint: Skin/Abscess/Foreign Body Stated complaint: fever, body aches, vomiting,dizzy Time Seen by Provider: 02/19/25 07:28 Mode of Arrival: Ambulatory Source of Information: Patient Description of Symptoms (Recalled from ER Triage Doc. by RN): Pt presents for evaluation of hives that are all over her body, feels like her tongue is swelling, bodyaches, dry cough, sore throat. Pt states she has tried taking ibuprofen, last dose was last night History of Present Illness HPI narrative: Ambika Gaspar is a 34-year-old female with a past medical history of ADHD, anxiety who presents to the emergency department for complaints of rash as well as nausea, vomiting and cough. Patient states that starting 2 days ago, she developed a dry cough and subjective fevers at home. She has also had several episodes of nausea and vomiting but denies any abdominal pain. She reports chest pain mainly with coughing. She does report feeling mildly short of breath. She reports a sore throat as well. She states that last night, she broke out into a rash, describing it as hives throughout her face, upper body and extremities. She feels like her tongue is somewhat swollen as well. She has been taking Benadryl and ibuprofen at home without relief. She denies any new detergents, foods, pets and has no known allergies that she is aware of. She states that her has also had a similar type illness with cough. She denies a headache or vision changes. Related Data Previous Rx's ?Medication ?Instructions ?Recorded amoxicillin 500 mg capsule 500 mg PO TID 10 days #30 caps 08/07/24 oxycodone 5 mg tablet 5 mg PO Q6H PRN pain #12 tabs 11/03/24 epinephrine 0.3 mg/0.3 mL 0.3 mg (0.3 mL) IM Q10M PRN 02/19/25 injection, auto-injector (EpiPen anaphylaxis #2 ea 2-Tima) ondansetron 4 mg disintegrating 4 mg PO Q6H PRN nausea and 02/19/25 tablet vomiting #12 tabs prednisone 10 mg tablet 10 mg PO DIRECTED #12 tabs 02/19/25 Allergies Allergy/AdvReac Type Severity Reaction Status Date / Time loratadine (From Claritin-D) Allergy Rash Verified 11/05/24 10:03 pseudoephedrine (From Allergy Rash Verified 11/05/24 10:03 Claritin-D) acetaminophen (From Vicodin) AdvReac Severe Rash Verified 11/05/24 10:03 hydrocodone (From Vicodin) AdvReac Severe Rash Verified 11/05/24 10:03 [facility] Disclaimer: The information contained in this section may have been updated after the patient was seen, as this information can be updated by other users. Medical History ADHD Anxiety PTSD (post-traumatic stress disorder) Depression Surgical History History of surgery on lower extremity History of appendectomy History of thyroid surgery Family History Other Family history of diabetes mellitus (DM) Social History Smoking Status: Never smoker alcohol intake: never substance use type: marijuana current occupational status: employed Travel in the last 8 weeks?: None Have you lived/traveled outside [place] in past 30 days?: No Contact w/someone who lives/traveled outside US past 30 days?: No Exposure to someone with infectious disease in past 14 days?: No Do you have a fever (greater than 100.4 F or 38 C)?: No Have you tested positive for COVID-19?: No Exposed to someone with COVID-19 in past 14 days?: No Do you have a sore throat?: No Do you have a cough?: No Do you have any weakness?: No Do you have any diarrhea?: No Are you experiencing any unusual bleeding?: No Do you have any muscle aches/pain?: No Do you have any abdominal pain?: No Are you experiencing loss of taste or smell?: No Other Medical History Have you received the Flu Vaccine for this season: No Have you received the Pneumonia Vaccine: No ROS Obtained: Yes Systems reviewed as appropriate & no additional complaints except as documented Physical Exam General General appearance: alert Comment: appears uncomfortable, maintaining airway appropriately Head Head exam: atraumatic Eye Eye exam: Present normal appearance ENT ENT exam: Present mucous membranes moist, normal external ear exam and other (No significant tongue swelling); Absent normal oropharynx (Mild posterior oropharyngeal erythema) Neck Neck exam: Present full ROM; Absent lymphadenopathy Chest Chest inspection: Present symmetric chest wall rise Respiratory Respiratory exam: Present normal lung sounds bilaterally; Absent respiratory distress, wheezes or stridor Cardiovascular Cardiovascular exam: Present normal rhythm and tachycardia Abdominal Exam Abdominal exam: Present soft; Absent distention, tenderness, guarding or rigidity Extremities Exam Extremities exam: Present normal inspection Back Exam Back exam: Present normal inspection Neurological Exam Neurological exam: Present alert and oriented X3 Psychiatric Psychiatric exam: Present normal affect Skin Skin exam: Present warm, dry and rash (Urticaric rash scattered throughout face, arms, legs and torso) Medical Decision Making Medical Records Screening: Per USPSTF and CDC recommendations, given the prevalence of disease in our region, it is our hospital?s policy to screen for HIV and viral Hepatitis for all patients aged 18 and over and those with ongoing risk factors. [place]ner Inquiry Pt receiving controlled substance: No Vital Signs: 02/19/25 07:33 02/19/25 09:25 02/19/25 10:34 Temperature 99.2 F Temperature Source Oral Pulse Rate 109 H Pulse Rate [Right] 111 H Respiratory Rate 18 24 Blood Pressure 139/76 115/80 Blood Pressure [Right Arm] 117/63 Blood Pressure Mean [Right Arm] 81 Blood Pressure Source [Right Arm] Manual Cuff/ Doppler Blood Pressure Position [Right Arm] Sitting 02 Sat by Pulse Oximetry 99 96 96 Oxygen Delivery Method Room Air Room Air Room Air Lab Data Lab Results 02/19/25 07:35: WBC 6.1, RBC 4.67, Hgb 14.4, Hct 41.9, MCV 89.7, MCH 30.8, MCHC 34.4, RDW 12.4, Plt Count 194, MPV 10.5 H, Neut % (Auto) 84.5 H, Lymph % (Auto) 5.3 L, Garrett % (Auto) 9.4 H, Eos % (Auto) 0.0 L, Baso % (Auto) 0.3, Neut # (Auto) 5.1, Lymph # (Auto) 0.3 L, Garrett # (Auto) 0.6, Eos # (Auto) 0.0, Baso # (Auto) 0.0, Total Counted 100, Neutrophils % (Manual) 87 H, Lymphocytes % (Manual) 8 L, Atypical Lymphs % 1.0, Monocytes % (Manual) 4, Platelet Estimate Normal, RBC Morphology Normal, Sodium 140, Potassium 3.1 L, Chloride 103, Carbon Dioxide 26, Anion Gap 14.1, BUN 11, Creatinine 1.10 H, Estimated Creat Clear 124, Estimated GFR 57 L, Est GFR ( Amer) 69, Glucose 109 H, Calcium 9.6, Total Bilirubin 0.7, AST 39 H, ALT 29, Alkaline Phosphatase 78, Troponin I < 0.01, C-Reactive Protein 68.1 H, NT-Pro-B Natriuret Pep 70.0, Total Protein 8.9 H, Albumin 5.0, Globulin 3.9 H, Albumin/Globulin Ratio 1.3, Lipase 89, Serum HCG, Qual Negative, SARS-CoV-2 (PCR) Not detected, Influenza A Untype (PCR) Detected A, Influenza Type B (PCR) Not detected, Group A Strep Rapid Negative 02/19/25 07:35 02/19/25 07:35 Orders (Tests/Meds): ED MEDICATIONS Discontinued Medications Generic Name Dose Route Start Last Admin Trade Name Freq PRN Reason Stop Dose Admin Diphenhydramine HCl 25 mg 02/19/25 07:35 02/19/25 07:45 Diphenhydramine 50mg/Ml Vial IV 02/19/25 07:36 25 mg ONCE ONE Administration Epinephrine HCl 0.3 mg 02/19/25 07:35 02/19/25 07:42 Epinephrine 1 Mg/Ml Vial IM 02/19/25 07:36 0.3 mg ONCE ONE Administration Lactated Ringer's 1,000 mls @ 999 mls/hr 02/19/25 07:39 02/19/25 08:56 Lactated Ringer's 1000 Ml Bag IV 02/19/25 08:39 Infused .Q1H1M ONE Infusion Methylprednisolone Sodium Succinate 125 mg 02/19/25 07:35 02/19/25 07:45 Methylprednisolone Sod Succ 125mg Vial IV 02/19/25 07:36 125 mg ONCE ONE Administration Potassium Chloride 40 meq 02/19/25 08:15 02/19/25 08:34 Potassium Chloride 20meq Tab PO 02/19/25 08:16 40 meq ONCE ONE Administration ORDERS Category Date Time Status CXR --portable [XR chest portable] Stat Exams 02/19/25 07:35 Completed BNP [NT Pro Brain Natriuretic Pep.] Stat Lab 02/19/25 07:35 Completed CBC w/Auto Diff [Complete Blood Count Auto Diff] Stat Lab 02/19/25 07:35 Completed CMP [Comprehensive Metabolic Panel] Stat Lab 02/19/25 07:35 Completed CRP [C-Reactive Protein] Stat Lab 02/19/25 07:35 Completed Lipase Stat Lab 02/19/25 07:35 Completed Rapid PCR Covid and Flu A/B Stat Lab 02/19/25 07:35 Completed Serum [HCG Qualitative, Serum] Stat Lab 02/19/25 07:35 Completed Strep Scrn Group A (Rapid) Stat Lab 02/19/25 07:35 Completed Troponin I Q3H Lab 02/19/25 10:45 Ordered Troponin I Q3H Lab 02/19/25 13:45 Ordered Troponin I Stat Lab 02/19/25 07:35 Completed Strep Screen Confirmation Stat Micro 02/19/25 07:35 Received Medical Decision Narrative: Ambika Gaspar is a 34-year-old female with a past medical history of ADHD, anxiety who presents to the emergency department for complaints of rash as well as nausea, vomiting and cough. Patient states that starting 2 days ago, she developed a dry cough and subjective fevers at home. She has also had several episodes of nausea and vomiting but denies any abdominal pain. She reports chest pain mainly with coughing. She does report feeling mildly short of breath. She reports a sore throat as well. She states that last night, she broke out into a rash, describing it as hives throughout her face, upper body and extremities. She feels like her tongue is somewhat swollen as well. She has been taking Benadryl and ibuprofen at home without relief. She denies any new detergents, foods, pets and has no known allergies that she is aware of. She denies any headache or vision changes. She states that her has also had a similar type illness with cough. On arrival, patient is normotensive, mildly tachycardic, afebrile with temperature of 99.2 ?F, maintaining appropriate oxygen saturation on room air. Physical exam, as stated above, reveals an overall uncomfortable appearing female in no respiratory distress. She is alert and answering questions appropriately. She is maintaining her airway appropriately. She has no wheezing, rales or rhonchi. She does have tachycardia but no murmurs or rubs on auscultation. Oropharyngeal exam shows no significant tongue swelling. She has some mild posterior oropharyngeal erythema but no tonsillar exudates or swelling. Uvula is midline. No cervical lymphadenopathy. Abdomen is soft, nontender nondistended. She does have scattered urticarial lesions throughout the face, upper extremities, torso and lower extremities. Patient states that she has been taking Zofran for her nausea and vomiting, which seems to have controlled it more and was able to tolerate Gatorade during my exam. Demential diagnosis includes, but is not limited to: Viral illness such as influenza, COVID, strep pharyngitis, anaphylaxis, allergic reaction, viral gastritis, among others. The most morbid conditions were considered and workup was based on these. Workup in the emergency department clued: Hematologic labs, rapid COVID and flu testing, rapid strep swab, EKG, chest x-ray. Patient was administered 125 mg Solu-Medrol, 0.3 mg of IM epinephrine as she meets criteria for anaphylaxis with multisystem involvement including rash, vomiting and shortness of breath, as well as 25 mg of IV Benadryl. EKG interpreted by me personally and demonstrated sinus tachycardia. No ST elevation or depression. No T wave inversions. QTc normal at 375. No STEMI. Patient's laboratory workup showed no leukocytosis, no anemia, low potassium 3.1 (replaced with 40 mill equivalents of potassium chloride orally), electrolytes otherwise within normal limits. Mild PLACIDO with creatinine of 1.10. BUN normal at 11. Patient is receiving fluids at this time. Glucose normal at 109. Mildly elevated AST at 39 but liver enzymes otherwise within normal limits and nonactionable. Normal bilirubin 0.7. Initial troponin less than 0.01. CRP is elevated at 68.1, however patient is flu a positive this is likely the reason. Negative test. Chest x-ray interpreted by me personally. No focal consolidation, no pneumothorax, no widened mediastinum, no enlargement of the cardiac silhouette. Unremarkable chest x-ray. See radiology report for details. On reassessment at approximately 08 40, patient's reported that her tongue does not feel as swollen. She does feel somewhat itchy stable. Hives are still present. Tachycardia is mildly improving. Will continue to monitor. On reassessment, patient has remained in stable condition. She has not had any worsening symptoms to suggest anaphylaxis. Given she is flu a positive, it is likely that her urticaric rash is from the viral infection as she has not had any new exposures. I do feel that she is appropriate for discharge at this time with a short course of steroids, Zofran and EpiPen out of an abundance of caution. I did give the patient strict return precautions. I encouraged her to continue drinking plenty of fluids to help prevent dehydration and her PLACIDO. All questions were answered. She demonstrated understanding and was in agreement with this plan. She was then discharged from the emergency department in stable condition. Critical Care Critical Care Time Critical Care Time: Yes Attestation: On 02/19/25, the high probability of a clinically significant, sudden or life threatening deterioration of the following system(s) required my full and direct attention, intervention and personal management. The time I documented below is in addition to time spent performing reported procedures but includes the following listed in this critical care notation. Total Time Total Critical Care Time: 35
[2025-02-19] MEDS: METHYLPREDNISOLONE SOD SUCC 125MG VIAL 125 MG IV (07:45)
[2025-02-19] MEDS: LACTATED RINGERS 1000ML 1,000 ML 999 ML IV (07:46)
[2025-02-19 07:56] LABS: Coronavirus 19, PCR Not Detected (NotDetected); Influenza B, PCR Not Detected (NotDetected)
[2025-02-19 07:58] LABS: Hematocrit 41.9 % (37.0-47.0); Hemoglobin 14.4 g/dL (12.2-16.2); Immature Granulocytes % 0.5 %; Mean Corpuscular HGB Conc 34.4 g/dL (31.8-35.4); Mean Corpuscular Hemoglobin 30.8 pg (27.0-31.2); Mean Corpuscular Volume 89.7 fl (81-99); Nucleated Red Blood Cells % 0 %; Platelet Count 194 K/mm3 (142-424); Red Blood Count 4.67 M/mm3 (4.20-5.40); Red Cell Distribution Width-SD 40.7 fL; White Blood Count 6.1 K/mm3 (4.8-10.8)
--- NOTE | 2025-02-19 07:58 | PC.NURSE ---
0730- Pt observed to have varies sized hives all over body. Pt has swelling to her left eye, and endorses tongue swelling. Pt states she has a sore throat, dry cough, and generalized body aches x 1 day. Pt denies any new hygiene products, food, pets, laundry detergent, denies taking any medications at home. Lung sounds clear bilaterally, HR noted to be 110 on the monitor
[2025-02-19 08:04] LABS: Albumin Level 5.0 g/dl (3.5-5.0); Chloride 103 mmol/L (98-107); Potassium 3.1 mmoL/L (3.5-5.1); Sodium 140 mmol/L (136-145)
[2025-02-19 08:07] LABS: Alanine Aminotransferase 29 U/L (12-78); Albumin/Globulin Ratio 1.3 (1.1-1.8); Alkaline Phosphatase 78 U/L (38-126); Anion Gap 14.1 mEq/L (5-15); Aspartate Amino Transferase 39 U/L (14-36); Bilirubin,Total 0.7 mg/dl (0.2-1.3); Blood Urea Nitrogen 11 mg/dl (7-17); Calcium 9.6 mg/dl (8.4-10.2); Carbon Dioxide 26 mmol/L (22.0-30.0); Creatinine Clearance Estimated 124 mL/min (50-200); Creatinine,Serum 1.10 mg/dl (0.52-1.04); Estimated Glomerular Filt Rate 57 ml/min (>60); GFR (African American) 69 ML/MIN (>60); Globulin 3.9 g/dL (1.3-3.2); Glucose 109 mg/dl (74-100); Total Protein,Serum 8.9 g/dl (6.3-8.2)
[2025-02-19 08:11] LABS: Strep Scrn Group A (Rapid) Negative (Negative)
[2025-02-19 08:12] LABS: C-Reactive Protein 68.1 mg/L (0-4)
[2025-02-19 08:13] LABS: HCG Qualitative, Serum Negative (Negative)
[2025-02-19 08:15] LABS: Lipase 89 U/L (23-300)
[2025-02-19 08:18] LABS: NT Pro Brain Natriuretic Pep. 70.0 pg/mL (0-125)
[2025-02-19 08:24] LABS: Troponin I < 0.01 ng/ml (0.00-0.034)
[2025-02-19 08:31] LABS: Influenza A, PCR Detected (NotDetected)
[2025-02-19] MEDS: POTASSIUM CHLORIDE 20MEQ TAB 40 MEQ PO (08:34)
[2025-02-19 08:55] LABS: Total Cells Counted 100
[2025-02-19 08:56] LABS: RBC Morphology Normal
--- NOTE | 2025-02-19 09:17 | PC.NURSE ---
Rounded with patient. Pt provided orange juice, denies any other needs at this time
[2025-02-19 09:25] VITALS: BP 139/76; RESP 24; O2SAT 96
[2025-02-19 10:34] VITALS: BP 115/80; PULSE 109; O2SAT 96
[2025-02-19 11:11] VITALS: BP 118/72; PULSE 105; RESP 18; TEMP 36.8; O2SAT 98
== END 2025-02-19 11:11 | disposition home or self-care (01) ==
PROVIDERS: Emergency Provider Student in an Organized Health Care Education/Training Program; PCP Internal Medicine Adolescent Medicine
DX: J10.1 Influenza due to other identified influenza virus with other respiratory manifestations (principal); L50.8 Other urticaria; R00.0 Tachycardia, unspecified; E87.6 Hypokalemia; R11.2 Nausea with vomiting, unspecified; R06.02 Shortness of breath; N17.9 Acute kidney failure, unspecified
CPT/HCPCS: 71045; 80053; 83690; 83880; 84484; 84703; 85007; 85025; 86140; 87430; 87636; 93005; 96361; 96372; 96374; 96375; 99285; J0169; J1200; J2919; J7120